=== PATIENT | female | born 1970 | race American Indian/Alaskan Native ===

== ENCOUNTER 2016-11-18 14:23 | Inpatient (IN) | payer OTHER ==
[2016-11-18 14:45] VITALS: BMI 23.4
--- NOTE | 2016-11-18 16:06 | C.PDOC ---
History Of Present Illness The patient, a 46y/o female, presents to the emergency department for evaluation of recurring epigastric pain which began yesterday. Patient states she has been experiencing similar symptoms "for many years" but with more frequent occurrences this month. Patient states her pain is located around her epigastric region and is waxing/waning. She states her pain has persisted but has improved from prior. She states her symptoms may questionably be associated with food. She denies fever, chills, nausea, vomiting. Patient was referred to the emergency department by her PMD for further evaluation. Patient has PSH of Total Hysterectomy. RECUR EPIG PAIN SINCE YEST. PS SIM SX "FOR MANY YEARS" BUT NOW MORE FREQ THIS MONTH. PAIN EPIGAST WAX WANE. PERSIST BUT IMPROVED FROM PRIOR. ?ASSOC W FOOD. NO FEVER, NV. REFERRED BY PMD FOR EVAL. PSH TOTAL HYST. EXAM NONTOXIC NAD ABD MILD EPIG TEND SOFT NO R/G REMAINDER NEG Time Seen by Provider: 11/18/16 15:42 Chief Complaint (Nursing): Abdominal Pain History Per: Patient History/Exam Limitations: no limitations Onset/Duration Of Symptoms: Waxing/Waning, Persistent Current Symptoms Are (Timing): Still Present Location Of Pain/Discomfort: Epigastric Quality Of Discomfort: "Pain" Associated Symptoms: denies: Fever, Chills, Nausea, Vomiting Exacerbating Factors: Food (questionably ) Additional History Per: Patient Past Medical History Reviewed: Historical Data, Nursing Documentation, Vital Signs Vital Signs: Last Vital Signs Temp 97.8 F 11/18/16 14:45 Pulse 93 H 11/18/16 14:45 Resp 18 11/18/16 14:45 BP 129/78 11/18/16 14:45 Pulse Ox 100 11/18/16 18:30 - Medical History PMH: No Chronic Diseases Family History: States: Unknown Family Hx - Social History Hx Alcohol Use: No Hx Substance Use: No - Immunization History Hx Tetanus Toxoid Vaccination: No Hx Influenza Vaccination: No Hx Pneumococcal Vaccination: No Review Of Systems Except As Marked, All Systems Reviewed And Found Negative. Constitutional: Negative for: Fever, Chills Gastrointestinal: Positive for: Abdominal Pain (epigastric ). Negative for: Nausea, Vomiting Physical Exam - Physical Exam Appears: Non-toxic, No Acute Distress Skin: Normal Color, Warm, Dry Head: Atraumatic, Normacephalic Eye(s): bilateral: Normal Inspection Oral Mucosa: Moist Neck: Supple Chest: Symmetrical, No Deformity, No Tenderness Cardiovascular: Rhythm Regular, No Murmur Respiratory: Normal Breath Sounds, No Rales, No Rhonchi, No Wheezing Gastrointestinal/Abdominal: Soft, Tenderness (mild, epigastric ), No Guarding, No Rebound Back: Normal Inspection, No Vertebral Tenderness, No Paraspinal Tenderness Extremity: Normal ROM, Capillary Refill (less than 2 seconds) Neurological/Psych: Oriented x3, Normal Speech Gait: Steady ED Course And Treatment - Laboratory Results Result Diagrams: 11/18/16 16:14 11/18/16 17:08 Rate From EC O2 Sat by Pulse Oximetry: 100 (on RA) Pulse Ox Interpretation: Normal - CT Scan/US US Abdomen Other Rad Studies (CT/US): Read By Radiologist CT/US Interpretation: Accession No. : [id number]. Patient Name / ID : WALESKA QUESADA / [id number]. Exam Date : 11/18/2016 16:36:54 ( Approved ). Study Comment : Sex / Age : F / 46Y. Creator : Sal Peña MD. Dictator : Sal Peña MD. Green Chain Offbearer : Breakdown Person : Sal Peña MD. Approver2 : Report Date : 11/18/2016 17:17:23. My Comment : . HISTORY: abd paiN EPIG RO ACUTE ROHIT. COMPARISON: None. TECHNIQUE: Sonographic evaluation of the right upper quadrant of the abdomen. FINDINGS: LIVER: Measures cm in length. Normal echogenicity of the liver parenchyma. No mass. No intrahepatic bile duct dilatation. GALLBLADDER: gallstones. COMMON BILE DUCT: Measures mm. No stones. No dilatation. PANCREAS: Unremarkable as visualized. No mass. No ductal dilatation. RIGHT KIDNEY: Measures cm in length. Normal echogenicity. No calculus, mass, or hydronephrosis. AORTA: No aneurysmal dilatation. IVC: Unremarkable. OTHER FINDINGS: None . IMPRESSION: Cholelithiasis. Progress Note: Labs, EKG, Abdominal US ordered and reviewed. ED OBSERVATION Date of observation admission: 11/18/16 Time of observation admission: 15:00 - Observation admission statement Patient is being placed in observation because:: ABD PAIN - Goals of Observation Goals of observation are:: NEG ACUTE ABD; SX IMPROVE - Progress Note Progress Note: 11/18/16 16:08 PT OFFERED PAIN MEDS BUT REFUSES @ THIS TIME. 11/18/16 18:12 APPEARS COMFORTABLE, EXAM UNCH FROM PRIOR D/W DR BRENNAN, STATES DOES NOT ADMIT AND TO ADMIT TO HOSPITALIST. REQUESTS DR PARRISH PRN 11/18/16 18:22 D/W DR ROJAS AWARE OF ER FINDINGS, STATES TO ADMIT UNDER DR KAY AND WILL NOTIFY HIM OF ADMISSION. 11/18/16 18:32 D/W SURG RESIDENT KALPANA WILL EVAL IN ER Disposition Counseled Patient/Family Regarding: Studies Performed, Diagnosis - Disposition Disposition: HOSPITALIZED Disposition Time: 17:47 Condition: STABLE - Clinical Impression Clinical Impression: Pancreatitis, acute, Cholelithiasis - Scribe Statement The provider has reviewed the documentation as recorded by the Scribe (Prisca Brwon) Provider Attestation: All medical record entries made by the Scribe were at my direction and personally dictated by me. I have reviewed the chart and agree that the record accurately reflects my personal performance of the history, physical exam, medical decision making, and the department course for this patient. I have also personally directed, reviewed, and agree with the discharge instructions and disposition. Decision To Admit - Pt Status Changed To: Hospital Disposition Of: Inpatient - Admit Certification Admit to Inpatient:: After my assessment, the patient will require hospitalization for at least two midnights. This is because of the severity of symptoms shown, intensity of services needed, and/or the medical risk in this patient being treated as an outpatient. - InPatient: Physician Admission Certification:: SEE NOTE - . Bed Request Type: Regular Admitting Physician: Wes Rojas Patient Diagnosis: Pancreatitis, acute, Cholelithiasis
[2016-11-18 16:34] LABS: BASO % 0.3 % (0.0-2.0); EOS % 0.1 % (0.0-4.0); LYMPH # 0.6 K/uL (1.0-4.3); MEAN CELL VOLUME 94.8 fL (81.0-99.0); MEAN CORPUSCULAR HEMOGLOBIN 30.9 pg (27.0-31.0); MEAN CORPUSCULAR HGB CONC 32.6 g/dL (33.0-37.0); MEAN PLATELET VOLUME 9.1 fL (7.2-11.7); MONO # 0.9 K/uL (0.0-0.8); MONO % 7.4 % (0.0-10.0); NRBC % 0.1 % (0.0-2.0); PLATELET COUNT 243 K/uL (130-400); RED CELL DISTRIBUTION WIDTH 13.2 % (11.5-14.5); WHITE BLOOD COUNT 12.2 K/uL (4.8-10.8)
[2016-11-18 16:36] LABS: RBC URINE 3 /hpf (0-3); URINE BILIRUBIN NEGATIVE (NEGATIVE); URINE BLOOD 1+ (NEGATIVE); URINE COLOR Yellow (YELLOW); URINE GLUCOSE (UA) NORMAL (Normal); URINE KETONE NEGATIVE (NEGATIVE); URINE LEUKOCYTE ESTERASE NEG Leu/uL (Negative); URINE PROTEIN NEGATIVE (NEGATIVE); URINE UROBILINOGEN NORMAL mg/dL (0.2-1.0)
--- NOTE | 2016-11-18 17:19 | US ---
HISTORY: abd paiN EPIG RO ACUTE ROHIT COMPARISON: None. TECHNIQUE: Sonographic evaluation of the right upper quadrant of the abdomen. FINDINGS: LIVER: Measures cm in length. Normal echogenicity of the liver parenchyma. No mass. No intrahepatic bile duct dilatation. GALLBLADDER: gallstones. COMMON BILE DUCT: Measures mm. No stones. No dilatation. PANCREAS: Unremarkable as visualized. No mass. No ductal dilatation. RIGHT KIDNEY: Measures cm in length. Normal echogenicity. No calculus, mass, or hydronephrosis. AORTA: No aneurysmal dilatation. IVC: Unremarkable. OTHER FINDINGS: None . IMPRESSION: Cholelithiasis.
[2016-11-18 17:22] LABS: CHLORIDE 99 mmol/L (98-107); SODIUM 141 mmol/L (132-148)
[2016-11-18 17:23] LABS: POTASSIUM 3.3 mmol/L (3.6-5.2)
[2016-11-18 17:24] LABS: GFR AFRICAN-AMERICAN > 60
[2016-11-18 17:25] LABS: ALB/GLOB RATIO 1.2 (1.0-2.1); ALKALINE PHOSPHATASE 150 U/L (38-126); BILIRUBIN,TOTAL 3.1 mg/dL (0.2-1.3); BLOOD UREA NITROGEN 10 mg/dL (7-17); CALCIUM 9.9 mg/dl (8.6-10.4); CARBON DIOXIDE 24 mmol/L (22-30); GLUCOSE,RANDOM 109 mg/dL (65-105); TOTAL PROTEIN 8.1 g/dL (6.3-8.3)
[2016-11-18 17:43] LABS: ALT/SGPT 1228 U/L (9-52); AST/SGOT 1291 U/L (14-36)
[2016-11-18 18:44] LABS: NEUTROPHIL 84 % (50-75); SMUDGE CELLS PRESENT; TOTAL CELLS COUNTED 100
[2016-11-18 18:45] LABS: LARGE PLATELETS PRESENT
--- NOTE | 2016-11-18 19:28 | CP.PCM.CON ---
<Mary Vasquez - Last Filed: 11/18/16 19:19> History of Present Illness - History of Present Illness History of Present Illness: GENERAL SURGERY CONSULT NOTE FOR DR. HATFIELD 46yo F with PMHx of fibroids s/p hysterectomy and cholelithiasis presents to the ED with epigastric pain and vomiting. She states that last night around 1Am , she began having epigastric pain that radiated to her back. She vomited small amounts about 8 times. She went to her PMD who told her to come to the ED. Patient states that she has had similar recurrent symptoms over the years that sometimes occur after eating. Usually she takes Tums or sometimes vomits and then the pain resolves after a couple of minutes. She said if the symptoms occur after eating spicy food then they take longer to resolve. Her PMD had sent her for an abdominal ultrasound in December 2015 which showed cholelithiasis but no signs of cholecystitis. She has never seen a surgeon for her gallstones. She states that the symptoms are similar to this episode, however the pain didn' t resolve on its own which prompted her to come to the ED. Currently, she states that the pain is gone. She refused pain medication in the ED. She denies nausea, denies diarrhea. Last BM was this morning. PMHx: fibroids, cholelithiasis Surgeries: open hysterectomy, tubal ligation Allergies: none Social history: denies etoh, tobacco or illicit drug use Review of Systems - Review of Systems All systems: reviewed and no additional remarkable complaints except (as per HPI ) Past Patient History - Past Social History Smoking Status: Never Smoked - PSYCHIATRIC Hx Substance Use: No - SURGICAL HISTORY Hx Surgeries: Yes Hx Hysterectomy: Yes Meds Allergies/Adverse Reactions: Allergies Allergy/AdvReac Type Severity Reaction Status Date / Time No Known Allergies Allergy Verified 11/18/16 14:44 Physical Exam - Constitutional Appears: Well, Non-toxic, No Acute Distress - Head Exam Head Exam: ATRAUMATIC, NORMAL INSPECTION - Eye Exam Eye Exam: EOMI - Respiratory Exam Respiratory Exam: NORMAL BREATHING PATTERN. absent: Respiratory Distress - Cardiovascular Exam Cardiovascular Exam: +S1, +S2 - GI/Abdominal Exam GI & Abdominal Exam: Soft, Tenderness (mild epigastric tenderness). absent: Distended, Firm, Guarding, Rebound, Rigid Additional comments: Negative [place] sign - Rectal Exam Rectal Exam: Deferred - Extremities Exam Extremities exam: Positive for: normal capillary refill - Neurological Exam Neurological exam: Alert, Oriented x3 - Psychiatric Exam Psychiatric exam: Normal Affect, Normal Mood - Skin Skin Exam: Dry, Intact, Normal Color, Warm Results - Vital Signs Recent Vital Signs: Last Vital Signs Temp 97.8 F 11/18/16 14:45 Pulse 93 H 11/18/16 14:45 Resp 18 11/18/16 14:45 BP 129/78 11/18/16 14:45 Pulse Ox 100 11/18/16 18:32 - Labs Result Diagrams: 11/18/16 16:14 11/18/16 17:08 Assessment & Plan - Assessment and Plan (Free Text) Assessment: 46yo F with PMHx of fibroids s/p hysterectomy and cholelithiasis presented with epigastric pain and vomiting and was found to have gallstone pancreatitis and hyperbilirubinemia - Afebrile, VSS - WBC 12.2 - Hypokalemia - Elevated bilirubin 3.1 (no prior comparison) - Markedly elevated LFTs - Markedly elevated lipase 11,445 - US: cholelithiasis, dilated CBD - NPO - IV fluids - MRCP ordered due to dilated CBD and elevated bilirubin - If MRCP negative, will do cholecystectomy once pancreatitis cools off - Discussed plan with Dr. Alysia Vasquez PGY-2 <Anatoliy Hatfield - Last Filed: 11/20/16 18:03> Meds - Medications Medications: Current Medications Sodium Chloride (Sodium Chloride 0.9%) 1,000 mls @ 200 mls/hr IV .Q5H [facility] Last Admin: 11/20/16 11:45 Dose: Not Given Morphine Sulfate (Morphine) 2 mg IVP Q4 PRN PRN Reason: Pain, moderate (4-7) Ondansetron HCl (Zofran Inj) 4 mg IVP Q4 PRN PRN Reason: Nausea/Vomiting Pantoprazole Sodium (Protonix Inj) 40 mg IVP DAILY [facility] Last Admin: 11/20/16 11:45 Dose: 40 mg Results - Vital Signs Recent Vital Signs: Last Vital Signs Temp 97.6 F 11/20/16 15:35 Pulse 89 11/20/16 16:57 Resp 20 11/20/16 15:35 BP 147/92 H 11/20/16 15:35 Pulse Ox 100 11/20/16 15:35 - Labs Result Diagrams: 11/20/16 07:48 11/20/16 07:48 Labs: Laboratory Results - last 24 hr 11/20/16 07:48 WBC 4.7 L RBC 3.97 Hgb 12.4 Hct 37.8 MCV 95.4 MCH 31.3 H MCHC 32.8 L RDW 13.8 Plt Count 216 MPV 8.9 Neut % (Auto) 70.1 Lymph % (Auto) 19.9 L [place] % (Auto) 7.5 Eos % (Auto) 1.8 Baso % (Auto) 0.7 Neut # 3.3 Lymph # 0.9 L [place] # 0.4 Eos # 0.1 Baso # 0.0 PT 12.6 H INR 1.1 APTT 37 H Sodium 139 Potassium 3.6 Chloride 108 H Carbon Dioxide 16 L Anion Gap 19 BUN 10 Creatinine 0.6 L Est GFR ( Amer) > 60 Est GFR (Non-Af Amer) > 60 Random Glucose 54 L Calcium 8.5 L Phosphorus 2.9 Magnesium 1.9 Total Bilirubin 1.4 H AST 142 H D ALT 446 H D Alkaline Phosphatase 133 H Lactate Dehydrogenase 334 Total Protein 6.6 Albumin 3.5 Globulin 3.1 Albumin/Globulin Ratio 1.1 Lipase 976 H Attending/Attestation - Attestation I have personally seen and examined this patient.: Yes I have fully participated in the care of the patient.: Yes I have reviewed all pertinent clinical information: Yes Notes (Text): 11/20/16 18:02 Pt was seen and examined at bedside on 11/18/16 Agree with above note and assessment. Pt with Cholelithiasis with GS pancreatitis C.w current mx MRCP We will f.u in am Plan d.w pt and Parents in detail Risk and benefit explained in detail.
[2016-11-18] MEDS: Sodium Chloride 0.9% 1,000 ML IV SCH (20:00)
--- NOTE | 2016-11-18 20:56 | CP.PCM.HP ---
<Kathi Bautista - Last Filed: 11/18/16 20:35> History of Present Illness - History of Present Illness History of Present Illness: CC: "abdominal pain and vomiting" HPI: Pt is a 46F with medical history of cholelithiasis and uterine fibroids who presents to the emergency room with complaint of abdominal pain and emesis. Patient states the abdominal pain started suddenly at 1 am and was located to her epigastric region and occasionally would radiate to her right upper back and shoulder. She also notes abdominal pain to be intermittent and sometimes associated with brief episodes of shortness of breath when severe. She reports vomiting of food contents which started later in the morning and admits to 4 episodes of emesis prior to coming to the hospital. Patient states she has experienced similar symptoms in the past as far back as 1997 and has been previously diagnosed with cholelithiasis by her primary care physician via ultrasonography. Her last episode of similar symptoms was one week ago. Patient states pain is alleviated by taking tums, drinking tea or emesis. The pain is exacerbated by eating spicy foods. She describes occasional colicky pain to her right upper abdominal quadrant associated with eating. She denies being previously evaluated by surgery for cholelithiasis. Patient denies a history of alcohol abuse. She denies all other symptoms including headache, dizziness, lightheadedness, visual changes, fever, chills, chest pain, paroxysmal nocturnal dyspnea, lower extremity edema, hematemesis, coffee ground emesis, pruritus, skin changes, diarrhea, hematochezia, and urinary symptoms. Currently , patient is resting comfortably and states abdominal pain has resolved. PMD: Dr. Bernardo Gunderson sp? PMH: see HPI Medications: Tums for abdominal pain Allergies: NKDA Family History: not pertinent Surgical History: total hysterectomy and tubal ligation Social: Never smoker. Denies alcohol and illicit drug use. Present on Admission - Present on Admission Any Indicators Present on Admission: No History of DVT/PE: No History of Uncontrolled Diabetes: No Urinary Catheter: No Decubitus Ulcer Present: No Review of Systems - Constitutional Constitutional: absent: Chills, Fever, Headache, Lethargy, Malaise, Weakness - EENT Eyes: absent: Change in Vision Ears: absent: Dizziness Nose/Mouth/Throat: absent: Nasal Congestion, Nasal Discharge - Cardiovascular Cardiovascular: Dyspnea. absent: Chest Pain, Chest Pain at Rest, Chest Pain with Activity, Edema, Leg Edema, Palpitations, Paroxysmal Nocturnal Dyspnea, Rapid Heart Rate, Syncope - Respiratory Respiratory: Dyspnea. absent: Hemoptysis, Dyspnea on Exertion, Wheezing, Chest Congestion - Gastrointestinal Gastrointestinal: Abdominal Pain, Nausea, Vomiting. absent: Bloating, Coffee Ground Emesis, Constipation, Diarrhea, Hematemesis, Hematochezia Additional comments: mild epigastric pain on palpation - Genitourinary Genitourinary: absent: Change in Urinary Stream, Difficulty Urinating, Dysuria - Musculoskeletal Musculoskeletal: Back Pain. absent: Numbness, Tingling - Integumentary Integumentary: absent: Changing Lesions, New Lesions, Rash - Neurological Neurological: absent: Confusion, Dizziness, Numbness, Syncope, Vertigo, Weakness - Psychiatric Psychiatric: absent: Anxiety, Depression - Endocrine Endocrine: absent: Cold Intolorance, Fatigue, Polyuria Past Patient History - Past Social History Smoking Status: Never Smoked - PSYCHIATRIC Hx Substance Use: No - SURGICAL HISTORY Hx Surgeries: Yes Hx Hysterectomy: Yes Meds Allergies/Adverse Reactions: Allergies Allergy/AdvReac Type Severity Reaction Status Date / Time No Known Allergies Allergy Verified 11/18/16 14:44 Physical Exam - Constitutional Appears: Non-toxic, No Acute Distress - Head Exam Head Exam: ATRAUMATIC, NORMAL INSPECTION, NORMOCEPHALIC - Eye Exam Eye Exam: EOMI, Normal appearance, PERRL Pupil Exam: PERRL - ENT Exam ENT Exam: Mucous Membranes Moist, Normal Exam. absent: Mucous Membranes Dry - Neck Exam Neck exam: Positive for: Full Rom, Normal Inspection - Respiratory Exam Respiratory Exam: Clear to Auscultation Bilateral, NORMAL BREATHING PATTERN. absent: Chest Wall Tenderness, Decreased Breath Sounds, Rales, Rhonchi, Wheezes - Cardiovascular Exam Cardiovascular Exam: +S1, +S2. absent: Tachycardia, Diastolic murmur, Gallop, Rubs, Systolic Murmur - GI/Abdominal Exam GI & Abdominal Exam: Normal Bowel Sounds, Soft, Tenderness. absent: Distended, Firm, Guarding, Hernia Additional comments: mild epigastric tenderness to palpation - Extremities Exam Extremities exam: Positive for: normal inspection, pedal pulses present. Negative for: pedal edema, tenderness - Back Exam Back exam: NORMAL INSPECTION. absent: paraspinal tenderness, rash noted, tenderness - Neurological Exam Neurological exam: Alert, CN II-XII Intact, Oriented x3 - Psychiatric Exam Psychiatric exam: Normal Affect, Normal Mood - Skin Skin Exam: Intact, Normal Color Results - Vital Signs Recent Vital Signs: Last Vital Signs Temp 98.3 F 11/18/16 19:44 Pulse 81 11/18/16 19:44 Resp 20 11/18/16 19:44 BP 130/83 11/18/16 19:44 Pulse Ox 98 11/18/16 19:44 - Labs Result Diagrams: 11/18/16 16:14 11/18/16 17:08 Assessment & Plan - Assessment and Plan (Free Text) Assessment: 1. Pancreatitis possibly secondary to cholelithiasis AST/ALT: 1291/1228 (no previous labs to compare) Alk Phos 150 Bilirubin 3.1 Lipase 32942 NPO Normal Saline IV @200cc Zofran 4 mg IVP q4h PRN for nausea Morphine 2 mg IVP q4h PRN for pain f/u CMP, CBC, amylase, lipase f/u hemoglobin alc, lipid panel, TSH 2. Cholelithiasis Abdominal US: Common bile duct 0.68 cm, cholelithiasis, elevated bilirubin General surgery, Dr. Hatfield, consulted. Help appreciated. f/u MRCP ordered by surgery Per surgery, will consider cholecystectomy pending MRCP results and after pancreatitis resolves 3. Leukocytosis likely secondary to pancreatitis WBC 12.2 Afebrile Monitor 4. Hypokalemia Potassium Chloride 20 meq IV x3 given f/u repeat potassium, magnesium Monitor 5. Prophylaxis SCD Protonix 40 mg IVP daily - Date & Time Date: 11/18/16 Time: 21:10 <Rodrigue Sainz P - Last Filed: 11/22/16 20:12> Results - Vital Signs Recent Vital Signs: Last Vital Signs Temp 98 F 11/22/16 16:00 Pulse 64 11/22/16 16:00 Resp 20 11/22/16 16:00 BP 146/80 11/22/16 16:00 Pulse Ox 95 11/22/16 16:00 - Labs Result Diagrams: 11/22/16 07:47 11/22/16 07:47 Labs: Laboratory Results - last 24 hr 11/22/16 07:47 WBC 3.3 L RBC 3.88 Hgb 11.9 Hct 36.4 MCV 93.8 MCH 30.7 MCHC 32.7 L RDW 13.5 Plt Count 209 MPV 8.8 Neut % (Auto) 57.3 Lymph % (Auto) 30.0 [place] % (Auto) 8.2 Eos % (Auto) 3.0 Baso % (Auto) 1.5 Neut # 1.9 Lymph # 1.0 [place] # 0.3 Eos # 0.1 Baso # 0.0 PT 12.1 INR 1.1 APTT 31 Sodium 141 Potassium 3.4 L Chloride 104 Carbon Dioxide 24 Anion Gap 16 BUN 2 L Creatinine 0.7 Est GFR ( Amer) > 60 Est GFR (Non-Af Amer) > 60 Random Glucose 90 Calcium 8.3 L Phosphorus 2.6 Magnesium 1.7 Total Bilirubin 0.9 AST 43 H D ALT 235 H D Alkaline Phosphatase 102 Total Protein 6.1 L Albumin 3.2 L Globulin 2.8 Albumin/Globulin Ratio 1.1 Attending/Attestation - Attestation I have personally seen and examined this patient.: Yes I have fully participated in the care of the patient.: Yes I have reviewed all pertinent clinical information: Yes
[2016-11-18] MEDS ORDERED: Potassium Chloride 20 mEq 100 ML IVPB ONE ×3 (21:07→21:08)
[2016-11-19] MEDS: Sodium Chloride 0.9% 1,000 ML IV SCH ×4 (01:15→20:45)
[2016-11-19] MEDS ORDERED: Potassium Chloride 20 mEq 100 ML IVPB ONE ×2 (02:00)
[2016-11-19 08:09] LABS: BASO % 0.6 % (0.0-2.0); EOS # 0.1 K/uL (0.0-0.7); EOS % 2.2 % (0.0-4.0); HEMATOCRIT 37.9 % (34.0-47.0); LYMPH # 0.9 K/uL (1.0-4.3); LYMPH % 13.3 % (20.0-40.0); MEAN CELL VOLUME 94.6 fL (81.0-99.0); MEAN CORPUSCULAR HEMOGLOBIN 31.3 pg (27.0-31.0); MEAN CORPUSCULAR HGB CONC 33.1 g/dL (33.0-37.0); MONO # 0.4 K/uL (0.0-0.8); MONO % 6.6 % (0.0-10.0); RED CELL DISTRIBUTION WIDTH 13.6 % (11.5-14.5); WHITE BLOOD COUNT 6.7 K/uL (4.8-10.8)
[2016-11-19 08:24] LABS: CHLORIDE 106 mmol/L (98-107); POTASSIUM 4.2 mmol/L (3.6-5.2); SODIUM 142 mmol/L (132-148)
[2016-11-19 08:26] LABS: AMYLASE 734 U/L (30-110)
[2016-11-19 08:27] LABS: GFR AFRICAN-AMERICAN > 60
[2016-11-19 08:28] LABS: ALB/GLOB RATIO 1.2 (1.0-2.1); ALKALINE PHOSPHATASE 149 U/L (38-126); ALT/SGPT 655 U/L (9-52); AST/SGOT 499 U/L (14-36); BILIRUBIN,TOTAL 5.3 mg/dL (0.2-1.3); BLOOD UREA NITROGEN 11 mg/dL (7-17); CALCIUM 8.6 mg/dl (8.6-10.4); CARBON DIOXIDE 21 mmol/L (22-30); CHOLESTEROL 137 mg/dL (0-199); GLUCOSE,RANDOM 72 mg/dL (65-105); MAGNESIUM 1.9 mg/dL (1.6-2.3); PHOSPHOROUS 3.1 mg/dL (2.5-4.5); TOTAL PROTEIN 6.7 g/dL (6.3-8.3)
--- NOTE | 2016-11-19 08:41 | CP.PCM.PN ---
<Arun Barger - Last Filed: 11/19/16 18:20> Subjective - Date & Time of Evaluation Date of Evaluation: 11/19/16 Time of Evaluation: 08:37 - Subjective Subjective: PGY-1 note for General Surgery, Dr. Hatfield Pt S&E. She admits RUQ pain has resolved from yesterday, and has refused all pain medication to this point. She denies f/c/n/v/d/c. Pt is NPO for MRCP today. Objective - Vital Signs/Intake and Output Vital Signs (last 24 hours): Temp Pulse Resp BP Pulse Ox 97.9 F 89 20 126/72 100 11/19/16 08:00 11/19/16 08:00 11/19/16 08:00 11/19/16 08:00 11/19/16 08:00 Intake and Output: 11/19/16 11/19/16 06:59 18:59 Intake Total 1400 Balance 1400 - Medications Medications: Current Medications Sodium Chloride (Sodium Chloride 0.9%) 1,000 mls @ 200 mls/hr IV .Q5H [facility] Last Admin: 11/19/16 06:40 Dose: 200 mls/hr Morphine Sulfate (Morphine) 2 mg IVP Q4 PRN PRN Reason: Pain, moderate (4-7) Ondansetron HCl (Zofran Inj) 4 mg IVP Q4 PRN PRN Reason: Nausea/Vomiting Pantoprazole Sodium (Protonix Inj) 40 mg IVP DAILY [facility] - Labs Labs: 11/19/16 08:03 11/19/16 08:03 - Constitutional Appears: Non-toxic, No Acute Distress - Head Exam Head Exam: ATRAUMATIC, NORMAL INSPECTION, NORMOCEPHALIC - Eye Exam Eye Exam: EOMI, Normal appearance Pupil Exam: PERRL - ENT Exam ENT Exam: Mucous Membranes Moist - Respiratory Exam Respiratory Exam: Clear to Ausculation Bilateral, NORMAL BREATHING PATTERN - GI/Abdominal Exam GI & Abdominal Exam: Soft, Normal Bowel Sounds. absent: Tenderness - Extremities Exam Extremities Exam: Normal Inspection - Neurological Exam Neurological Exam: Alert, Awake Assessment and Plan - Assessment and Plan (Free Text) Assessment: - Afebrile, VSS - WBC 6.7 from 12.2 yesterday - Hypokalemia resolved - Elevated bilirubin: 5.3 from 3.1 yesterday - Downtrending but elevated LFTs (499/655 from 1291/1228 yesterday) - Markedly elevated lipase 11,445 - US: cholelithiasis, dilated CBD - NPO - IV fluids - f/u MRCP results - If MRCP negative, will do cholecystectomy once pancreatitis cools off Surgical team discussed plan with Dr. Alysia Barger, PGY-1 <Anatoliy Hatfield - Last Filed: 11/20/16 18:09> Objective - Vital Signs/Intake and Output Vital Signs (last 24 hours): Temp Pulse Resp BP Pulse Ox 97.6 F 89 20 147/92 H 100 11/20/16 15:35 11/20/16 16:57 11/20/16 15:35 11/20/16 15:35 11/20/16 15:35 Intake and Output: 11/20/16 11/20/16 06:59 18:59 Intake Total 1600 400 Balance 1600 400 - Medications Medications: Current Medications Sodium Chloride (Sodium Chloride 0.9%) 1,000 mls @ 200 mls/hr IV .Q5H [facility] Last Admin: 11/20/16 11:45 Dose: Not Given Morphine Sulfate (Morphine) 2 mg IVP Q4 PRN PRN Reason: Pain, moderate (4-7) Ondansetron HCl (Zofran Inj) 4 mg IVP Q4 PRN PRN Reason: Nausea/Vomiting Pantoprazole Sodium (Protonix Inj) 40 mg IVP DAILY [facility] Last Admin: 11/20/16 11:45 Dose: 40 mg - Labs Labs: 11/20/16 07:48 11/20/16 07:48 PT 12.6 SECONDS (9.7-12.2) H 11/20/16 07:48 INR 1.1 11/20/16 07:48 APTT 37 SECONDS (21-34) H 11/20/16 07:48 Attending/Attestation - Attestation I have personally seen and examined this patient.: Yes I have fully participated in the care of the patient.: Yes I have reviewed all pertinent clinical information, including history, physical exam and plan: Yes Notes (Text): 11/20/16 18:09 Pt was seen and examined at bedside on 03/21/17 Agree with above note and assessment. MRCP is positive GI consult for ERCP C/w current mx Plan d.w pt and Parents in detail Risk and benefit explained in detail.
[2016-11-19 08:53] LABS: THYROID STIMULATING HORMONE 1.01 mIU/L (0.46-4.68)
--- NOTE | 2016-11-19 12:35 | CP.PCM.PN ---
<Julia Castle - Last Filed: 11/19/16 12:36> Subjective - Date & Time of Evaluation Date of Evaluation: 11/19/16 Time of Evaluation: 07:25 - Subjective Subjective: PGY [address] Gross: Patient seen and evaluated at bedside this morning. Patient states that her abdominal pain has resolved. She is NPO for MRCP today. She denies N/V, fever, chills. She has no other complaints. She states that she has not taken any news medications recently and does not drink alcohol. She does have a long history of gallstones also with a few episodes of pancreatitis. Objective - Vital Signs/Intake and Output Vital Signs (last 24 hours): Temp Pulse Resp BP Pulse Ox 97.9 F 89 20 126/72 100 11/19/16 08:00 11/19/16 08:00 11/19/16 08:00 11/19/16 08:00 11/19/16 08:00 Intake and Output: 11/19/16 11/19/16 06:59 18:59 Intake Total 1400 Balance 1400 - Medications Medications: Current Medications Sodium Chloride (Sodium Chloride 0.9%) 1,000 mls @ 200 mls/hr IV .Q5H [facility] Last Admin: 11/19/16 06:40 Dose: 200 mls/hr Morphine Sulfate (Morphine) 2 mg IVP Q4 PRN PRN Reason: Pain, moderate (4-7) Ondansetron HCl (Zofran Inj) 4 mg IVP Q4 PRN PRN Reason: Nausea/Vomiting Pantoprazole Sodium (Protonix Inj) 40 mg IVP DAILY [facility] Last Admin: 11/19/16 10:42 Dose: 40 mg - Labs Labs: 11/19/16 08:03 11/19/16 08:03 - Constitutional Appears: Non-toxic, No Acute Distress - Head Exam Head Exam: ATRAUMATIC, NORMAL INSPECTION - Eye Exam Eye Exam: EOMI, Normal appearance, PERRL Pupil Exam: NORMAL ACCOMODATION - ENT Exam ENT Exam: Mucous Membranes Moist - Respiratory Exam Respiratory Exam: Clear to Ausculation Bilateral, NORMAL BREATHING PATTERN. absent: Accessory Muscle Use, Chest Wall Tenderness - Cardiovascular Exam Cardiovascular Exam: REGULAR RHYTHM, +S1, +S2 - GI/Abdominal Exam GI & Abdominal Exam: Soft, Normal Bowel Sounds. absent: Distended, Firm, Guarding, Tenderness - Extremities Exam Extremities Exam: Normal Inspection. absent: Calf Tenderness, Pedal Edema - Back Exam Back Exam: NORMAL INSPECTION. absent: CVA tenderness (L), CVA tenderness (R), paraspinal tenderness - Neurological Exam Neurological Exam: Alert, Awake, CN II-XII Intact, Oriented x3 Neuro motor strength exam: Left Upper Extremity: 5, Right Upper Extremity: 5, Left Lower Extremity: 5, Right Lower Extremity: 5 - Psychiatric Exam Psychiatric exam: Normal Affect, Normal Mood - Skin Skin Exam: Dry, Intact, Normal Color, Warm Assessment and Plan - Assessment and Plan (Free Text) Assessment: 1. Pancreatitis possibly secondary to cholelithiasis AST/ALT: 655/149 - improving 1291/1228 (no previous labs to compare) Alk Phos 150 Bilirubin 5.3 up from 3.1 on admission Lipase 2786 down from 48119 on admission NPO Normal Saline IV @200cc Zofran 4 mg IVP q4h PRN for nausea Morphine 2 mg IVP q4h PRN for pain Hepatitis negative TSH wnl HbA1c = 6 Tchol 137, Trig 42, LDL 45, HDL 65 f/u AM labs 2. Cholelithiasis Abdominal US: Common bile duct 0.68 cm, cholelithiasis, elevated bilirubin General surgery, Dr. Hatfield, consulted. Help appreciated. f/u MRCP ordered by surgery Per surgery, will consider cholecystectomy pending MRCP results and after pancreatitis resolves 3. Leukocytosis Resolved WBC 6.7 (WBC 12.2 on admission) likely secondary to pancreatitis Afebrile Monitor 4. Hypokalemia Resolved 5. Prophylaxis SCD Protonix 40 mg IVP daily NPO <Wes Gross H - Last Filed: 11/19/16 14:11> Objective - Vital Signs/Intake and Output Vital Signs (last 24 hours): Temp Pulse Resp BP Pulse Ox 97.9 F 89 20 126/72 100 11/19/16 08:00 11/19/16 08:00 11/19/16 08:00 11/19/16 08:00 11/19/16 08:00 Intake and Output: 11/19/16 11/19/16 06:59 18:59 Intake Total 1400 Balance 1400 - Medications Medications: Current Medications Sodium Chloride (Sodium Chloride 0.9%) 1,000 mls @ 200 mls/hr IV .Q5H [facility] Last Admin: 11/19/16 06:40 Dose: 200 mls/hr Morphine Sulfate (Morphine) 2 mg IVP Q4 PRN PRN Reason: Pain, moderate (4-7) Ondansetron HCl (Zofran Inj) 4 mg IVP Q4 PRN PRN Reason: Nausea/Vomiting Pantoprazole Sodium (Protonix Inj) 40 mg IVP DAILY [facility] Last Admin: 11/19/16 10:42 Dose: 40 mg - Labs Labs: 11/19/16 08:03 11/19/16 08:03 Attending/Attestation - Attestation I have personally seen and examined this patient.: Yes I have fully participated in the care of the patient.: Yes I have reviewed all pertinent clinical information, including history, physical exam and plan: Yes Notes (Text): 11/19/16 14:05 Medical Attending: Patient was seen and examined by me. Agree with the above note by the resident The patient's LFTs are decreasing, and the lipase is decreasing as well - she probably passed the gall stone already Patient will be having MRCP for further evaluation of the billiary tree. The U/S shows gallstones. At this time continue with IVF, NPO thank you Wes Gross
--- NOTE | 2016-11-19 15:54 | CP.PCM.CON ---
<Franchesca Osborn - Last Filed: 11/19/16 15:50> History of Present Illness - History of Present Illness History of Present Illness: Gastroenterology Fellow/PGY4 Consult Note 46 year old female with history of Cholelithiasis and fibroids status post total hysterectomy presenting with abdominal pain. She describes sudden onset of constant epigastric pain with radiation to back and right shoulder. She was evaluated by PCP and decided to present to ER for further evaluation given unchanged severe pain -06/10. Associated nausea and intractable bilious vomitus. Denies hematemesis, diarrhea,pruritis, jaundice, scleral icterus, dysphagia, odynophagia, fever, chills, sweats, melena, hematochezia, weight loss , dysphagia, odynophagia. Denies tobacco or alcohol use. No prior EGD or colonoscopy. Family-denies liver cancer, pancreatic cancer Social-denies tobacco,alcohol, illicit drug use Surgery- total hysterectomy and bilateral tubal ligation Review of Systems - Review of Systems Review of Systems: A 12-point review of systems negative except for as above Past Patient History - Past Social History Smoking Status: Never Smoked - MUSCULOSKELETAL/RHEUMATOLOGICAL Hx Falls: No - PSYCHIATRIC Hx Substance Use: No - SURGICAL HISTORY Hx Surgeries: Yes Hx Hysterectomy: Yes - ANESTHESIA Hx Anesthesia: Yes Hx Anesthesia Reactions: No Hx Malignant Hyperthermia: No Has any member of the family had a problem w/ anesthesia?: No Meds Allergies/Adverse Reactions: Allergies Allergy/AdvReac Type Severity Reaction Status Date / Time No Known Allergies Allergy Verified 11/18/16 14:44 - Medications Medications: Current Medications Sodium Chloride (Sodium Chloride 0.9%) 1,000 mls @ 200 mls/hr IV .Q5H [facility] Last Admin: 11/19/16 06:40 Dose: 200 mls/hr Morphine Sulfate (Morphine) 2 mg IVP Q4 PRN PRN Reason: Pain, moderate (4-7) Ondansetron HCl (Zofran Inj) 4 mg IVP Q4 PRN PRN Reason: Nausea/Vomiting Pantoprazole Sodium (Protonix Inj) 40 mg IVP DAILY [facility] Last Admin: 11/19/16 10:42 Dose: 40 mg Physical Exam - Constitutional Appears: Non-toxic, No Acute Distress - Head Exam Head Exam: ATRAUMATIC, NORMOCEPHALIC - Eye Exam Eye Exam: EOMI, PERRL. absent: Scleral icterus Pupil Exam: PERRL. absent: Miosis, Mydriatic - ENT Exam ENT Exam: Mucous Membranes Moist, Normal Oropharynx - Neck Exam Neck exam: Positive for: Full Rom, Normal Inspection - Respiratory Exam Respiratory Exam: Clear to Auscultation Bilateral. absent: Rales, Rhonchi, Wheezes - Cardiovascular Exam Cardiovascular Exam: RRR, +S1, +S2. absent: Gallop, Rubs - GI/Abdominal Exam GI & Abdominal Exam: Normal Bowel Sounds, Soft. absent: Distended, Firm, Guarding, Organomegaly, Rebound, Rigid, Tenderness - Extremities Exam Extremities exam: Positive for: full ROM. Negative for: pedal edema - Neurological Exam Neurological exam: Alert - Psychiatric Exam Psychiatric exam: Normal Affect, Normal Mood - Skin Skin Exam: Dry, Intact, Normal Color, Warm Results - Vital Signs Recent Vital Signs: Last Vital Signs Temp 97.9 F 11/19/16 08:00 Pulse 89 11/19/16 08:00 Resp 20 11/19/16 08:00 BP 126/72 11/19/16 08:00 Pulse Ox 100 11/19/16 08:00 - Labs Result Diagrams: 11/19/16 08:03 11/19/16 08:03 Labs: Laboratory Results - last 24 hr 11/19/16 11/19/16 08:03 09:56 WBC 6.7 RBC 4.01 Hgb 12.6 Hct 37.9 MCV 94.6 MCH 31.3 H MCHC 33.1 RDW 13.6 Plt Count 214 MPV 9.0 Neut % (Auto) 77.3 H Lymph % (Auto) 13.3 L Tama % (Auto) 6.6 Eos % (Auto) 2.2 Baso % (Auto) 0.6 Neut # 5.2 Lymph # 0.9 L Tama # 0.4 Eos # 0.1 Baso # 0.0 Sodium 142 Potassium 4.2 Chloride 106 Carbon Dioxide 21 L Anion Gap 19 BUN 11 Creatinine 0.8 Est GFR ( Amer) > 60 Est GFR (Non-Af Amer) > 60 Random Glucose 72 Hemoglobin A1c 6.1 Calcium 8.6 Phosphorus 3.1 Magnesium 1.9 Total Bilirubin 5.3 H AST 499 H D ALT 655 H D Alkaline Phosphatase 149 H Total Protein 6.7 Albumin 3.6 Globulin 3.1 Albumin/Globulin Ratio 1.2 Triglycerides 42 Cholesterol 137 LDL Cholesterol Direct 45 HDL Cholesterol 65 Amylase 734 H Lipase 2786 H TSH 3rd Generation 1.01 Hepatitis A IgM Ab Negative Hep Bs Antigen Negative Hep B Core IgM Ab Negative Hepatitis C Antibody Negative Assessment & Plan - Assessment and Plan (Free Text) Assessment: 46 year old female with history of Cholelithiasis and fibroids status post total hysterectomy presenting with epigastric pain. Ultrasound showing cholelithiasis without biliary dilatation. Laboratory findings with transaminitis, elevated lipase, and improved leukocytosis. No prior EGD or colonoscopy. Plan: >workup revealing gallstone pancreatitis >awaiting MRCP to evaluate for choledocholithiasis >discussed with Radiologist- questionable distal microlithiasis of CBD >will provide final read with additional radiologist review >continue supportive care >aggressive IVFs in setting of pancreatitis >pain resolved >discussed with surgery-NPO, tentative cholecystectomy >LFTs trending down, TB increased >trend LFTs, may have passed gallstone >will provide recommendation for ERCP indication with radiologist read, LFTs trend, and clinical assessment <Greyson Abrams - Last Filed: 11/19/16 16:12> Meds - Medications Medications: Current Medications Sodium Chloride (Sodium Chloride 0.9%) 1,000 mls @ 200 mls/hr IV .Q5H [facility] Last Admin: 11/19/16 06:40 Dose: 200 mls/hr Morphine Sulfate (Morphine) 2 mg IVP Q4 PRN PRN Reason: Pain, moderate (4-7) Ondansetron HCl (Zofran Inj) 4 mg IVP Q4 PRN PRN Reason: Nausea/Vomiting Pantoprazole Sodium (Protonix Inj) 40 mg IVP DAILY [facility] Last Admin: 11/19/16 10:42 Dose: 40 mg Results - Vital Signs Recent Vital Signs: Last Vital Signs Temp 97.9 F 11/19/16 08:00 Pulse 89 11/19/16 08:00 Resp 20 11/19/16 08:00 BP 126/72 11/19/16 08:00 Pulse Ox 100 11/19/16 08:00 - Labs Result Diagrams: 11/19/16 08:03 11/19/16 08:03 Labs: Laboratory Results - last 24 hr 11/19/16 11/19/16 08:03 09:56 WBC 6.7 RBC 4.01 Hgb 12.6 Hct 37.9 MCV 94.6 MCH 31.3 H MCHC 33.1 RDW 13.6 Plt Count 214 MPV 9.0 Neut % (Auto) 77.3 H Lymph % (Auto) 13.3 L Tama % (Auto) 6.6 Eos % (Auto) 2.2 Baso % (Auto) 0.6 Neut # 5.2 Lymph # 0.9 L Tama # 0.4 Eos # 0.1 Baso # 0.0 Sodium 142 Potassium 4.2 Chloride 106 Carbon Dioxide 21 L Anion Gap 19 BUN 11 Creatinine 0.8 Est GFR ( Amer) > 60 Est GFR (Non-Af Amer) > 60 Random Glucose 72 Hemoglobin A1c 6.1 Calcium 8.6 Phosphorus 3.1 Magnesium 1.9 Total Bilirubin 5.3 H AST 499 H D ALT 655 H D Alkaline Phosphatase 149 H Total Protein 6.7 Albumin 3.6 Globulin 3.1 Albumin/Globulin Ratio 1.2 Triglycerides 42 Cholesterol 137 LDL Cholesterol Direct 45 HDL Cholesterol 65 Amylase 734 H Lipase 2786 H TSH 3rd Generation 1.01 Hepatitis A IgM Ab Negative Hep Bs Antigen Negative Hep B Core IgM Ab Negative Hepatitis C Antibody Negative Attending/Attestation - Attestation I have personally seen and examined this patient.: Yes I have fully participated in the care of the patient.: Yes I have reviewed all pertinent clinical information: Yes Notes (Text): 11/19/16 16:05 I have seen and examined patient with GI fellow. Agree with above documentation with following additions. In brief, this is a 46 year old female with history of cholelithiasis and uterine fibroids who presents to hospital with complaint of abdominal pain. She describes sudden onset epigastric abdominal pain, 9/10 intensity which was radiating to back and started 2 days ago. Prior to this she was in usual state of health. This was associated with nausea and non-bloody emesis, last episode yesterday. She otherwise denies fever/chills, weight loss, rectal bleeding, jaundice, pruritis, or similar prior episodes. No prior endoscopic evaluation. Abdominal pain Cholelithiasis, gallstone pancreatitis Transaminitis - NPO - Continue with IVF hydration, pain control - MRCP imaging ordered to evaluate for choledocholithiasis, will follow up results - LFTs trending down, continue to monitor - Patient tentatively scheduled for cholecystectomy tomorrow, however pending results of imaging patient may require ERCP prior to operative intervention for stone extraction +/- sphincterotomy if distal CBD filling defect noted - Case discussed with Dr. Hatfield
--- NOTE | 2016-11-19 16:17 | MRI ---
PROCEDURE: Magnetic Resonance Cholangiopancreatography HISTORY: COMPARISON: None available. TECHNIQUE: Multiplanar, multisequence MR images of the abdomen were obtained, including heavily T2 weighted MRCP images of the biliary system. Rotating maximum intensity projection images of the biliary system were generated. FINDINGS: MRCP: The common bile duct is of a normal caliber. It measures approximately 6 mm in diameter. There are several small filling defects in the distal common bile duct likely representing choledocholithiasis. . LIVER: Normal size, contour and signal intensity. No mass. No intrahepatic biliary dilatation. Probable calculus within intrahepatic biliary duct centrally in left hepatic lobe, best seen on series 5, image 11 GALLBLADDER: Multiple gallstones. No mural thickening or pericholecystic fluid seen. SPLEEN: Normal size, contour and signal intensity. No focal mass. PANCREAS: Normal in appearance without evidence of mass or pancreatic ductal dilatation. No peripancreatic fluid or edema noted. ADRENALS: Unremarkable. KIDNEYS: Unremarkable. AORTA: No aneurysm. ASCITES: None. OTHER FINDINGS: None. IMPRESSION: Cholelithiasis. Choledocholithiasis. No evidence of cholecystitis. No evidence of pancreatitis. Probable intrahepatic biliary calculus, nonobstructing.
--- NOTE | 2016-11-19 20:28 | CARD ---
APPROVED REPORT EKG Measurement Heart [id number] MT [id number] <Conclusion> Normal sinus rhythm Normal ECG
[2016-11-20] MEDS: Sodium Chloride 0.9% 1,000 ML IV SCH ×6 (01:03→21:46)
[2016-11-20 08:00] LABS: BASO % 0.7 % (0.0-2.0); EOS # 0.1 K/uL (0.0-0.7); EOS % 1.8 % (0.0-4.0); HEMATOCRIT 37.8 % (34.0-47.0); LYMPH # 0.9 K/uL (1.0-4.3); LYMPH % 19.9 % (20.0-40.0); MEAN CELL VOLUME 95.4 fL (81.0-99.0); MEAN CORPUSCULAR HEMOGLOBIN 31.3 pg (27.0-31.0); MEAN CORPUSCULAR HGB CONC 32.8 g/dL (33.0-37.0); MEAN PLATELET VOLUME 8.9 fL (7.2-11.7); MONO # 0.4 K/uL (0.0-0.8); MONO % 7.5 % (0.0-10.0); RED CELL DISTRIBUTION WIDTH 13.8 % (11.5-14.5); WHITE BLOOD COUNT 4.7 K/uL (4.8-10.8)
[2016-11-20 08:06] LABS: INR 1.1
[2016-11-20 08:08] LABS: CHLORIDE 108 mmol/L (98-107)
[2016-11-20 08:09] LABS: POTASSIUM 3.6 mmol/L (3.6-5.2); SODIUM 139 mmol/L (132-148)
[2016-11-20 08:11] LABS: ALB/GLOB RATIO 1.1 (1.0-2.1); ALKALINE PHOSPHATASE 133 U/L (38-126); ALT/SGPT 446 U/L (9-52); AST/SGOT 142 U/L (14-36); BILIRUBIN,TOTAL 1.4 mg/dL (0.2-1.3); BLOOD UREA NITROGEN 10 mg/dL (7-17); CARBON DIOXIDE 16 mmol/L (22-30); GFR AFRICAN-AMERICAN > 60; GLUCOSE,RANDOM 54 mg/dL (65-105); PHOSPHOROUS 2.9 mg/dL (2.5-4.5); TOTAL PROTEIN 6.6 g/dL (6.3-8.3)
[2016-11-20 08:12] LABS: CALCIUM 8.5 mg/dl (8.6-10.4); MAGNESIUM 1.9 mg/dL (1.6-2.3)
--- NOTE | 2016-11-20 10:24 | CP.PCM.PN ---
Addendum entered and electronically signed by Sal Gasca DO 11/20/16 13:00 : Planning for Friday OR. PGY3 Original Note: <Sal Gasca - Last Filed: 11/20/16 10:22> Subjective - Date & Time of Evaluation Date of Evaluation: 11/20/16 Time of Evaluation: 08:40 - Subjective Subjective: General Surgery Pt S&E, NAEO. Denies any complaints at this time. Pt is NPO for ERCP today at 2pm. MRCP showed choledocholithiasis. Objective - Vital Signs/Intake and Output Vital Signs (last 24 hours): Temp Pulse Resp BP Pulse Ox 97.9 F 85 20 123/68 99 11/20/16 08:00 11/20/16 08:00 11/20/16 08:00 11/20/16 08:00 11/20/16 08:00 Intake and Output: 11/20/16 11/20/16 06:59 18:59 Intake Total 1600 Balance 1600 - Medications Medications: Current Medications Sodium Chloride (Sodium Chloride 0.9%) 1,000 mls @ 200 mls/hr IV .Q5H [facility] Last Admin: 11/20/16 06:12 Dose: 200 mls/hr Morphine Sulfate (Morphine) 2 mg IVP Q4 PRN PRN Reason: Pain, moderate (4-7) Ondansetron HCl (Zofran Inj) 4 mg IVP Q4 PRN PRN Reason: Nausea/Vomiting Pantoprazole Sodium (Protonix Inj) 40 mg IVP DAILY [facility] Last Admin: 11/19/16 10:42 Dose: 40 mg - Labs Labs: 11/20/16 07:48 11/20/16 07:48 PT 12.6 SECONDS (9.7-12.2) H 11/20/16 07:48 INR 1.1 11/20/16 07:48 APTT 37 SECONDS (21-34) H 11/20/16 07:48 - Constitutional Appears: Non-toxic, No Acute Distress - Head Exam Head Exam: ATRAUMATIC, NORMOCEPHALIC - Eye Exam Eye Exam: EOMI. absent: Scleral icterus - Respiratory Exam Respiratory Exam: NORMAL BREATHING PATTERN. absent: Respiratory Distress - GI/Abdominal Exam GI & Abdominal Exam: Soft. absent: Distended, Tenderness - Neurological Exam Neurological Exam: Alert, Awake - Skin Skin Exam: Dry, Warm Assessment and Plan - Assessment and Plan (Free Text) Assessment: 46F with Gallstone pancreatitis and choledocolithiasis Plan: F/U ERCP LFTs trending down Will reschedule Lap Lashawn Will D/W Dr. Alysia Gasca PGY3 <Anatoliy Hatfield - Last Filed: 11/20/16 18:12> Objective - Vital Signs/Intake and Output Vital Signs (last 24 hours): Temp Pulse Resp BP Pulse Ox 97.6 F 89 20 147/92 H 100 11/20/16 15:35 11/20/16 16:57 11/20/16 15:35 11/20/16 15:35 11/20/16 15:35 Intake and Output: 11/20/16 11/20/16 06:59 18:59 Intake Total 1600 400 Balance 1600 400 - Medications Medications: Current Medications Sodium Chloride (Sodium Chloride 0.9%) 1,000 mls @ 200 mls/hr IV .Q5H [facility] Last Admin: 11/20/16 11:45 Dose: Not Given Morphine Sulfate (Morphine) 2 mg IVP Q4 PRN PRN Reason: Pain, moderate (4-7) Ondansetron HCl (Zofran Inj) 4 mg IVP Q4 PRN PRN Reason: Nausea/Vomiting Pantoprazole Sodium (Protonix Inj) 40 mg IVP DAILY [facility] Last Admin: 11/20/16 11:45 Dose: 40 mg - Labs Labs: 11/20/16 07:48 11/20/16 07:48 PT 12.6 SECONDS (9.7-12.2) H 11/20/16 07:48 INR 1.1 11/20/16 07:48 APTT 37 SECONDS (21-34) H 11/20/16 07:48 Attending/Attestation - Attestation I have personally seen and examined this patient.: Yes I have fully participated in the care of the patient.: Yes I have reviewed all pertinent clinical information, including history, physical exam and plan: Yes Notes (Text): 11/20/16 18:10 Pt was seen and examined at bedside on 11/20/16 Agree with above note and assessment. S/P ERCP Repeat LFTs and Amylase and Lipase in am Possible OR for Lap cholecystectomy on Friday We will f.u
--- NOTE | 2016-11-20 10:55 | CP.PCM.PN ---
<Julia Castle - Last Filed: 11/20/16 10:47> Subjective - Date & Time of Evaluation Date of Evaluation: 11/20/16 Time of Evaluation: 07:10 - Subjective Subjective: PGY [address] Gross: Patient seen and evaluated at bedside this morning. Patient states that her abdominal pain has resolved. She is NPO for ERCP today. She denies N/V, fever, chills. She has no other complaints such as headache, change sin vision, CP, SOB , N/V, diarrhea/constipation, pain or swelling in the extremities. She is aware that at some point in the future she will need to gall bladder removed and she is agreeable to the surgery. Objective - Vital Signs/Intake and Output Vital Signs (last 24 hours): Temp Pulse Resp BP Pulse Ox 97.9 F 85 20 123/68 99 11/20/16 08:00 11/20/16 08:00 11/20/16 08:00 11/20/16 08:00 11/20/16 08:00 Intake and Output: 11/20/16 11/20/16 06:59 18:59 Intake Total 1600 Balance 1600 - Medications Medications: Current Medications Sodium Chloride (Sodium Chloride 0.9%) 1,000 mls @ 200 mls/hr IV .Q5H [facility] Last Admin: 11/20/16 06:12 Dose: 200 mls/hr Morphine Sulfate (Morphine) 2 mg IVP Q4 PRN PRN Reason: Pain, moderate (4-7) Ondansetron HCl (Zofran Inj) 4 mg IVP Q4 PRN PRN Reason: Nausea/Vomiting Pantoprazole Sodium (Protonix Inj) 40 mg IVP DAILY [facility] Last Admin: 11/19/16 10:42 Dose: 40 mg - Labs Labs: 11/20/16 07:48 11/20/16 07:48 PT 12.6 SECONDS (9.7-12.2) H 11/20/16 07:48 INR 1.1 11/20/16 07:48 APTT 37 SECONDS (21-34) H 11/20/16 07:48 - Constitutional Appears: No Acute Distress - Head Exam Head Exam: ATRAUMATIC, NORMAL INSPECTION - Eye Exam Eye Exam: EOMI, Normal appearance, PERRL Pupil Exam: NORMAL ACCOMODATION - ENT Exam ENT Exam: Mucous Membranes Moist - Respiratory Exam Respiratory Exam: Clear to Ausculation Bilateral, NORMAL BREATHING PATTERN. absent: Accessory Muscle Use, Rales, Rhonchi, Wheezes, Respiratory Distress - Cardiovascular Exam Cardiovascular Exam: REGULAR RHYTHM, +S1, +S2. absent: Murmur - GI/Abdominal Exam GI & Abdominal Exam: Soft, Normal Bowel Sounds. absent: Distended, Firm, Guarding, Tenderness - Extremities Exam Extremities Exam: Normal Inspection. absent: Pedal Edema - Back Exam Back Exam: NORMAL INSPECTION. absent: CVA tenderness (L), CVA tenderness (R), paraspinal tenderness - Neurological Exam Neurological Exam: Alert, Awake, CN II-XII Intact, Oriented x3 Neuro motor strength exam: Left Upper Extremity: 5, Right Upper Extremity: 5, Left Lower Extremity: 5, Right Lower Extremity: 5 - Psychiatric Exam Psychiatric exam: Normal Affect, Normal Mood - Skin Skin Exam: Dry, Intact, Normal Color, Warm Assessment and Plan - Assessment and Plan (Free Text) Assessment: 1. Pancreatitis Resolving, possibly secondary to cholelithiasis AST/ALT: 142/466 - improving 1291/1228 (no previous labs to compare) Alk Phos 150 Bilirubin 1.4 - improving Lipase 926 [place] [address] on admission NPO Normal Saline IV @200cc Zofran 4 mg IVP q4h PRN for nausea Morphine 2 mg IVP q4h PRN for pain Hepatitis negative TSH wnl HbA1c = 6 Tchol 137, Trig 42, LDL 45, HDL 65 f/u AM labs 2. Cholelithiasis/Choledocholithiasis For ERCP today MRCP - cholelithiasis. choledocholithiasis (several small filling defects in the DCBD). no evidence of cholecystitis. no evidence of pancreatitis. probable intrahepatic biliary calculus nonobstructing. Abdominal US: Common bile duct 0.68 cm, cholelithiasis, elevated bilirubin General surgery, Dr. Hatfield, consulted. Help appreciated. GI consulted, Dr. Abrams help appreciated Per surgery, will consider cholecystectomy post ERCP 3. Leukocytosis Resolved WBC 4.7 (WBC 12.2 on admission) likely secondary to pancreatitis Afebrile Monitor 4. Hypokalemia Resolved 5. Prophylaxis SCD Protonix 40 mg IVP daily NPO <Wes Gross - Last Filed: 11/20/16 13:18> Objective - Vital Signs/Intake and Output Vital Signs (last 24 hours): Temp Pulse Resp BP Pulse Ox 97.9 F 85 20 123/68 99 11/20/16 08:00 11/20/16 08:00 11/20/16 08:00 11/20/16 08:00 11/20/16 08:00 Intake and Output: 11/20/16 11/20/16 06:59 18:59 Intake Total 1600 Balance 1600 - Medications Medications: Current Medications Sodium Chloride (Sodium Chloride 0.9%) 1,000 mls @ 200 mls/hr IV .Q5H [facility] Last Admin: 11/20/16 11:45 Dose: Not Given Morphine Sulfate (Morphine) 2 mg IVP Q4 PRN PRN Reason: Pain, moderate (4-7) Ondansetron HCl (Zofran Inj) 4 mg IVP Q4 PRN PRN Reason: Nausea/Vomiting Pantoprazole Sodium (Protonix Inj) 40 mg IVP DAILY [facility] Last Admin: 11/20/16 11:45 Dose: 40 mg - Labs Labs: 11/20/16 07:48 11/20/16 07:48 PT 12.6 SECONDS (9.7-12.2) H 11/20/16 07:48 INR 1.1 11/20/16 07:48 APTT 37 SECONDS (21-34) H 11/20/16 07:48 Attending/Attestation - Attestation I have personally seen and examined this patient.: Yes I have fully participated in the care of the patient.: Yes I have reviewed all pertinent clinical information, including history, physical exam and plan: Yes Notes (Text): Medical Attending: Patient was seen and examined by me. Agree with the above note by the resident. The patient will be undergoing ERCP today, and sometimes afterwards cholsectomy by surgery. At this time the LFTs as well as the Lipase are decreasing. Patient reported she felt comfortable and did not have pain with palpation when we saw and examined the patient thank you Wes Gross
[2016-11-20] MEDS ORDERED: Iohexol 240 (50 ml) ONE (14:03)
[2016-11-21] MEDS: Sodium Chloride 0.9% 1,000 ML IV SCH ×2 (02:53→18:04)
--- NOTE | 2016-11-21 08:00 | CP.PCM.PN ---
<Julia Castle - Last Filed: 11/21/16 08:52> Subjective - Date & Time of Evaluation Date of Evaluation: 11/21/16 Time of Evaluation: 07:00 - Subjective Subjective: PGY [address] Gross: Patient seen and evaluated at bedside this morning. Patient states that her abdominal pain has resolved. She is on a liquid diet. 6 stones removed during ERCP yesterday. She will have a lap lashawn procedure tomorrow. She denies N/V, fever, chills. She has no other complaints such as headache, change sin vision, CP, SOB, N/V, diarrhea/constipation, pain or swelling in the extremities. Objective - Vital Signs/Intake and Output Vital Signs (last 24 hours): Temp Pulse Resp BP Pulse Ox 98.2 F 54 L 20 125/74 99 11/21/16 00:00 11/21/16 00:00 11/21/16 00:00 11/21/16 00:00 11/21/16 00:00 Intake and Output: 11/21/16 11/21/16 06:59 18:59 Intake Total 3000 Balance 3000 - Medications Medications: Current Medications Sodium Chloride (Sodium Chloride 0.9%) 1,000 mls @ 200 mls/hr IV .Q5H [facility] Last Admin: 11/21/16 02:53 Dose: 200 mls/hr Morphine Sulfate (Morphine) 2 mg IVP Q4 PRN PRN Reason: Pain, moderate (4-7) Ondansetron HCl (Zofran Inj) 4 mg IVP Q4 PRN PRN Reason: Nausea/Vomiting Pantoprazole Sodium (Protonix Inj) 40 mg IVP DAILY [facility] Last Admin: 11/20/16 11:45 Dose: 40 mg - Labs Labs: 11/20/16 07:48 11/20/16 07:48 PT 12.6 SECONDS (9.7-12.2) H 11/20/16 07:48 INR 1.1 11/20/16 07:48 APTT 37 SECONDS (21-34) H 11/20/16 07:48 - Constitutional Appears: Non-toxic, No Acute Distress - Head Exam Head Exam: ATRAUMATIC, NORMAL INSPECTION - Eye Exam Eye Exam: EOMI, Normal appearance, PERRL Pupil Exam: NORMAL ACCOMODATION - ENT Exam ENT Exam: Mucous Membranes Moist - Respiratory Exam Respiratory Exam: Clear to Ausculation Bilateral, NORMAL BREATHING PATTERN. absent: Accessory Muscle Use, Chest Wall Tenderness, Respiratory Distress - Cardiovascular Exam Cardiovascular Exam: REGULAR RHYTHM, +S1, +S2 - GI/Abdominal Exam GI & Abdominal Exam: Soft, Normal Bowel Sounds. absent: Distended, Firm, Guarding, Tenderness - Extremities Exam Extremities Exam: Normal Inspection. absent: Calf Tenderness, Pedal Edema - Back Exam Back Exam: NORMAL INSPECTION. absent: CVA tenderness (L), CVA tenderness (R), paraspinal tenderness - Neurological Exam Neurological Exam: Alert, Awake, CN II-XII Intact, Oriented x3 Neuro motor strength exam: Left Upper Extremity: 5, Right Upper Extremity: 5, Left Lower Extremity: 5, Right Lower Extremity: 5 - Psychiatric Exam Psychiatric exam: Normal Affect, Normal Mood - Skin Skin Exam: Dry, Intact, Normal Color, Warm Assessment and Plan - Assessment and Plan (Free Text) Assessment: 1. Pancreatitis Resolving, possibly secondary to cholelithiasis AST/ALT: 64/323 improving, were elevated on admission (1291/1288) Alk Phos 150 Bilirubin 1.3 - improving Lipase 926 [place] [address] on admission liquid diet as tolerated Normal Saline IV @ 100cc/hour Zofran 4 mg IVP q4h PRN for nausea Morphine 2 mg IVP q4h PRN for pain Hepatitis negative TSH wnl HbA1c = 6 Tchol 137, Trig 42, LDL 45, HDL 65 f/u AM labs 2. Cholelithiasis/Choledocholithiasis For Lap Lashawn tomorrow s/p ERCP with stone extraction and sphincterotomy - 6 stones removed MRCP - cholelithiasis. choledocholithiasis (several small filling defects in the DCBD). no evidence of cholecystitis. no evidence of pancreatitis. probable intrahepatic biliary calculus nonobstructing. Abdominal US: Common bile duct 0.68 cm, cholelithiasis, elevated bilirubin General surgery, Dr. Hatfield, consulted. Help appreciated. GI consulted, Dr. Abrams help appreciated Per surgery, will consider cholecystectomy post ERCP 3. Leukocytosis Resolved WBC 3.7 (WBC 12.2 on admission) likely secondary to pancreatitis Afebrile Monitor 4. Hypokalemia Resolved 5. Prophylaxis SCD Protonix 40 mg IVP daily Liquid diet as tolerated, NPO past midnight for OR tomorrow <Gross,Peter H - Last Filed: 11/21/16 11:28> Objective - Vital Signs/Intake and Output Vital Signs (last 24 hours): Temp Pulse Resp BP Pulse Ox 98.5 F 51 L 20 134/60 99 11/21/16 08:00 11/21/16 08:48 11/21/16 08:00 11/21/16 08:00 11/21/16 08:00 Intake and Output: 11/21/16 11/21/16 06:59 18:59 Intake Total 3000 Balance 3000 - Medications Medications: Current Medications Sodium Chloride (Sodium Chloride 0.9%) 1,000 mls @ 100 mls/hr IV .Q10H [facility] Morphine Sulfate (Morphine) 2 mg IVP Q4 PRN PRN Reason: Pain, moderate (4-7) Ondansetron HCl (Zofran Inj) 4 mg IVP Q4 PRN PRN Reason: Nausea/Vomiting Pantoprazole Sodium (Protonix Inj) 40 mg IVP DAILY [facility] Last Admin: 11/20/16 11:45 Dose: 40 mg - Labs Labs: 11/21/16 07:48 11/21/16 07:48 PT 11.8 SECONDS (9.7-12.2) 11/21/16 07:48 INR 1.1 11/21/16 07:48 APTT 32 SECONDS (21-34) D 11/21/16 07:48 Attending/Attestation - Attestation I have personally seen and examined this patient.: Yes I have fully participated in the care of the patient.: Yes I have reviewed all pertinent clinical information, including history, physical exam and plan: Yes Notes (Text): Medical Attending: Patient was seen and examined by me. Agree with the above note by the resident The patient completed ERCP yesterday and GI was able to extract several stones and sludge. Patient reported this morning was feeling well. She did not have any complaints or concerns when we saw her - currently pending cholesectomy at this moment. thank you Wes Gross
[2016-11-21 08:02] LABS: CHLORIDE 104 mmol/L (98-107); POTASSIUM 3.7 mmol/L (3.6-5.2); SODIUM 139 mmol/L (132-148)
[2016-11-21 08:04] LABS: BILIRUBIN,TOTAL 1.5 mg/dL (0.2-1.3); GFR AFRICAN-AMERICAN > 60
[2016-11-21 08:05] LABS: ALB/GLOB RATIO 1.1 (1.0-2.1); ALKALINE PHOSPHATASE 114 U/L (38-126); ALT/SGPT 323 U/L (9-52); AST/SGOT 64 U/L (14-36); BLOOD UREA NITROGEN 5 mg/dL (7-17); CARBON DIOXIDE 22 mmol/L (22-30); GLUCOSE,RANDOM 76 mg/dL (65-105); PHOSPHOROUS 2.8 mg/dL (2.5-4.5); TOTAL PROTEIN 6.4 g/dL (6.3-8.3)
[2016-11-21 08:06] LABS: CALCIUM 8.3 mg/dl (8.6-10.4); MAGNESIUM 1.8 mg/dL (1.6-2.3)
[2016-11-21 08:07] LABS: BASO % 0.6 % (0.0-2.0); EOS # 0.1 K/uL (0.0-0.7); EOS % 1.4 % (0.0-4.0); HEMATOCRIT 37.1 % (34.0-47.0); LYMPH # 0.9 K/uL (1.0-4.3); LYMPH % 24.7 % (20.0-40.0); MEAN CELL VOLUME 94.9 fL (81.0-99.0); MEAN CORPUSCULAR HEMOGLOBIN 30.6 pg (27.0-31.0); MEAN CORPUSCULAR HGB CONC 32.3 g/dL (33.0-37.0); MEAN PLATELET VOLUME 9.1 fL (7.2-11.7); MONO # 0.3 K/uL (0.0-0.8); MONO % 7.9 % (0.0-10.0); NRBC % 0.1 % (0.0-2.0); RED CELL DISTRIBUTION WIDTH 13.7 % (11.5-14.5); WHITE BLOOD COUNT 3.7 K/uL (4.8-10.8)
--- NOTE | 2016-11-21 08:08 | CP.PCM.PN ---
<Delphine Patten - Last Filed: 11/21/16 08:04> Subjective - Date & Time of Evaluation Date of Evaluation: 11/21/16 Time of Evaluation: 07:00 - Subjective Subjective: General Surgery - Dr. Hatfield Pt S&E. MEDHAT. Pt went for ERCP yesterday w/ sphincterotomy and stone removal( x6). This morning pt. denies any complaints. She has no abdominal pain, nausea /vomiting, fevers/chills. She is on clear liquid diet and tolerating. Objective - Vital Signs/Intake and Output Vital Signs (last 24 hours): Temp Pulse Resp BP Pulse Ox 98.2 F 54 L 20 125/74 99 11/21/16 00:00 11/21/16 00:00 11/21/16 00:00 11/21/16 00:00 11/21/16 00:00 Intake and Output: 11/21/16 11/21/16 06:59 18:59 Intake Total 3000 Balance 3000 - Medications Medications: Current Medications Sodium Chloride (Sodium Chloride 0.9%) 1,000 mls @ 200 mls/hr IV .Q5H [facility] Last Admin: 11/21/16 02:53 Dose: 200 mls/hr Morphine Sulfate (Morphine) 2 mg IVP Q4 PRN PRN Reason: Pain, moderate (4-7) Ondansetron HCl (Zofran Inj) 4 mg IVP Q4 PRN PRN Reason: Nausea/Vomiting Pantoprazole Sodium (Protonix Inj) 40 mg IVP DAILY [facility] Last Admin: 11/20/16 11:45 Dose: 40 mg - Labs Labs: 11/20/16 07:48 11/20/16 07:48 PT 12.6 SECONDS (9.7-12.2) H 11/20/16 07:48 INR 1.1 11/20/16 07:48 APTT 37 SECONDS (21-34) H 11/20/16 07:48 - Constitutional Appears: Well, No Acute Distress - Head Exam Head Exam: ATRAUMATIC, NORMAL INSPECTION, NORMOCEPHALIC - Eye Exam Eye Exam: Normal appearance. absent: Scleral icterus - Respiratory Exam Respiratory Exam: NORMAL BREATHING PATTERN. absent: Respiratory Distress - Cardiovascular Exam Cardiovascular Exam: REGULAR RHYTHM - GI/Abdominal Exam GI & Abdominal Exam: Soft. absent: Distended, Guarding, Tenderness, Rebound - Neurological Exam Neurological Exam: Alert, Oriented x3 - Psychiatric Exam Psychiatric exam: Normal Affect, Normal Mood - Skin Skin Exam: Dry, Intact Assessment and Plan - Assessment and Plan (Free Text) Assessment: 46 yo F w/ gallstone pancreatitis, choledocholithiasis, s/p ERCP 11/20 -Doing well s/p ERCP -F/U LFTs, Lipase today -Plan for OR tomorrow for Cholecystectomy -NPO after midnight - Dr. Alysia Patten PGY2 <Aantoliy Hatfield B - Last Filed: 11/22/16 15:17> Objective - Vital Signs/Intake and Output Vital Signs (last 24 hours): Temp Pulse Resp BP Pulse Ox 96.2 F L 72 10 L 151/74 H 100 11/22/16 12:20 11/22/16 13:14 11/22/16 13:14 11/22/16 13:14 11/22/16 13:14 Intake and Output: 11/22/16 11/22/16 06:59 18:59 Intake Total 1850 50 Output Total 1300 Balance 1850 -1250 - Medications Medications: Current Medications Sodium Chloride (Sodium Chloride 0.9%) 1,000 mls @ 100 mls/hr IV .Q10H [facility] Last Admin: 11/22/16 05:25 Dose: 100 mls/hr Morphine Sulfate (Morphine) 4 mg IVP Q4 PRN PRN Reason: Pain, moderate (4-7) Last Admin: 11/22/16 13:46 Dose: 4 mg Ondansetron HCl (Zofran Inj) 4 mg IVP Q4 PRN PRN Reason: Nausea/Vomiting Oxycodone/Acetaminophen (Percocet 5/325 Mg Tab) 1 tab PO Q4H PRN PRN Reason: Pain, moderate (4-7) Stop: 11/25/16 13:12 Pantoprazole Sodium (Protonix Inj) 40 mg IVP DAILY [facility] Last Admin: 11/22/16 09:24 Dose: 40 mg - Labs Labs: 11/22/16 07:47 11/22/16 07:47 PT 12.1 SECONDS (9.7-12.2) 11/22/16 07:47 INR 1.1 11/22/16 07:47 APTT 31 SECONDS (21-34) 11/22/16 07:47 Attending/Attestation - Attestation I have personally seen and examined this patient.: Yes I have fully participated in the care of the patient.: Yes I have reviewed all pertinent clinical information, including history, physical exam and plan: Yes Notes (Text): 11/22/16 15:16 Pt was seen and examined at bedside on 11/21/16 Agree with above note and assessment Pt with GS pancreatitis s/p ERCP OR for Lap cholecystectomy tomorrow Plan d.w pt in detail Risk and benefit explained in detail.
--- NOTE | 2016-11-21 08:12 | CP.PCM.PN ---
Subjective - Date & Time of Evaluation Date of Evaluation: 11/21/16 Time of Evaluation: 08:09 - Subjective Subjective: Patient seen and examined. Resting in bed comfortably, no acute events overnight. She denies abdominal pain, nausea, vomiting, diarrhea, fever/ chills. Tolerating PO liquids without difficulty. Review of vitals from today are normal. 12 point review of systems performed, negative aside from mentioned above. Objective - Vital Signs/Intake and Output Vital Signs (last 24 hours): Temp Pulse Resp BP Pulse Ox 98.2 F 54 L 20 125/74 99 11/21/16 00:00 11/21/16 00:00 11/21/16 00:00 11/21/16 00:00 11/21/16 00:00 Intake and Output: 11/21/16 11/21/16 06:59 18:59 Intake Total 3000 Balance 3000 - Medications Medications: Current Medications Sodium Chloride (Sodium Chloride 0.9%) 1,000 mls @ 200 mls/hr IV .Q5H [facility] Last Admin: 11/21/16 02:53 Dose: 200 mls/hr Morphine Sulfate (Morphine) 2 mg IVP Q4 PRN PRN Reason: Pain, moderate (4-7) Ondansetron HCl (Zofran Inj) 4 mg IVP Q4 PRN PRN Reason: Nausea/Vomiting Pantoprazole Sodium (Protonix Inj) 40 mg IVP DAILY [facility] Last Admin: 11/20/16 11:45 Dose: 40 mg - Labs Labs: 11/20/16 07:48 11/21/16 07:48 PT 12.6 SECONDS (9.7-12.2) H 11/20/16 07:48 INR 1.1 11/20/16 07:48 APTT 37 SECONDS (21-34) H 11/20/16 07:48 - Constitutional Appears: Non-toxic, No Acute Distress - Head Exam Head Exam: NORMAL INSPECTION - Eye Exam Eye Exam: EOMI, Normal appearance - ENT Exam ENT Exam: Mucous Membranes Moist - Respiratory Exam Respiratory Exam: Clear to Ausculation Bilateral - Cardiovascular Exam Cardiovascular Exam: REGULAR RHYTHM, +S1, +S2 - GI/Abdominal Exam GI & Abdominal Exam: Soft, Normal Bowel Sounds Additional comments: non tender to palpation in four quadrants - Extremities Exam Extremities Exam: Normal Inspection - Skin Skin Exam: Dry, Intact, Normal Color, Warm Assessment and Plan - Assessment and Plan (Free Text) Assessment: Acute gallstone pancreatitis s/p ERCP with stone extraction and sphincterotomy Plan: - Liquid diet as tolerated - LFTs trending down, continue to monitor - Patient planned for cholecystectomy tomorrow - No ongoing GI issues, further plan as per surgical team. Suggest outpatient routine age appropriate colonoscopy for cancer screening. Will sign off case, please reconsult as necessary, thank you.
[2016-11-21 08:27] LABS: INR 1.1
[2016-11-22] MEDS: Sodium Chloride 0.9% 1,000 ML IV SCH (05:25)
[2016-11-22 07:55] LABS: BASO % 1.5 % (0.0-2.0); EOS # 0.1 K/uL (0.0-0.7); HEMATOCRIT 36.4 % (34.0-47.0); MEAN CELL VOLUME 93.8 fL (81.0-99.0); MEAN CORPUSCULAR HEMOGLOBIN 30.7 pg (27.0-31.0); MEAN CORPUSCULAR HGB CONC 32.7 g/dL (33.0-37.0); MEAN PLATELET VOLUME 8.8 fL (7.2-11.7); MONO # 0.3 K/uL (0.0-0.8); MONO % 8.2 % (0.0-10.0); NRBC % 0.1 % (0.0-2.0); RED CELL DISTRIBUTION WIDTH 13.5 % (11.5-14.5); WHITE BLOOD COUNT 3.3 K/uL (4.8-10.8)
[2016-11-22 08:00] LABS: INR 1.1
[2016-11-22 08:05] LABS: CHLORIDE 104 mmol/L (98-107); POTASSIUM 3.4 mmol/L (3.6-5.2); SODIUM 141 mmol/L (132-148)
[2016-11-22 08:07] LABS: BILIRUBIN,TOTAL 0.9 mg/dL (0.2-1.3); GFR AFRICAN-AMERICAN > 60
[2016-11-22 08:08] LABS: ALB/GLOB RATIO 1.1 (1.0-2.1); ALKALINE PHOSPHATASE 102 U/L (38-126); ALT/SGPT 235 U/L (9-52); AST/SGOT 43 U/L (14-36); CARBON DIOXIDE 24 mmol/L (22-30); GLUCOSE,RANDOM 90 mg/dL (65-105); PHOSPHOROUS 2.6 mg/dL (2.5-4.5); TOTAL PROTEIN 6.1 g/dL (6.3-8.3)
[2016-11-22 08:09] LABS: CALCIUM 8.3 mg/dl (8.6-10.4); MAGNESIUM 1.7 mg/dL (1.6-2.3)
[2016-11-22 08:13] LABS: BLOOD UREA NITROGEN 2 mg/dL (7-17)
--- NOTE | 2016-11-22 09:45 | RAD ---
PROCEDURE: Fluoroscopy up to 1 hr. HISTORY: CBD STONES COMPARISON: None TECHNIQUE: Standard protocol for this study/examination. FINDINGS: Total fluoroscopic time (continuous mode) utilized during the procedure: 74.0 seconds IMPRESSION: Less than 1 hr fluoroscopic time utilized during performance of the procedure.
[2016-11-22] MEDS ORDERED: Lidocaine 1% w Epi 1:100,000 Inj ONE (09:52)
[2016-11-22] MEDS ORDERED: Bupivacaine HCl 0.25% PF (10 ml) Inj ONE ×2 (09:53→12:03)
[2016-11-22] MEDS ORDERED: cefOXitin IV 1 gm in Dextrose 50 ML IVPB ONE (09:53)
[2016-11-22] MEDS ORDERED: Lactated Ringer's 1,000 ML IV ONE ×2 (10:10→10:25)
[2016-11-22] MEDS ORDERED: Propofol 10 mg/ml Inj (20 ML) ONE (10:16)
[2016-11-22] MEDS ORDERED: Midazolam 2 MG/2 ML VIAL ONE (10:16)
[2016-11-22] MEDS ORDERED: Rocuronium 10 mg/ml (5 ml) ONE (10:50)
[2016-11-22] MEDS ORDERED: Succinylcholine Chloride 20 mg/ml Syr (5 ml) IV ONE (10:50)
--- NOTE | 2016-11-22 10:51 | CP.PCM.PN ---
<Julia Castle - Last Filed: 11/22/16 12:20> Subjective - Date & Time of Evaluation Date of Evaluation: 11/22/16 Time of Evaluation: 07:05 - Subjective Subjective: PGY [address] Gross: Patient seen and evaluated at bedside this morning. Patient states that her abdominal pain has resolved. She will have a lap lashawn procedure tomorrow. She denies N/V, fever, chills. She has no other complaints such as headache, change sin vision, CP, SOB, N/V, diarrhea/constipation, pain or swelling in the extremities. Objective - Vital Signs/Intake and Output Vital Signs (last 24 hours): Temp Pulse Resp BP Pulse Ox 97.8 F 55 L 18 121/73 98 11/22/16 08:00 11/22/16 08:00 11/22/16 08:00 11/22/16 08:00 11/22/16 08:00 Intake and Output: 11/22/16 11/22/16 06:59 18:59 Intake Total 1850 Balance 1850 - Medications Medications: Current Medications Sodium Chloride (Sodium Chloride 0.9%) 1,000 mls @ 100 mls/hr IV .Q10H [facility] Last Admin: 11/22/16 05:25 Dose: 100 mls/hr Morphine Sulfate (Morphine) 2 mg IVP Q4 PRN PRN Reason: Pain, moderate (4-7) Ondansetron HCl (Zofran Inj) 4 mg IVP Q4 PRN PRN Reason: Nausea/Vomiting Pantoprazole Sodium (Protonix Inj) 40 mg IVP DAILY [facility] Last Admin: 11/22/16 09:24 Dose: 40 mg - Labs Labs: 11/22/16 07:47 11/22/16 07:47 PT 12.1 SECONDS (9.7-12.2) 11/22/16 07:47 INR 1.1 11/22/16 07:47 APTT 31 SECONDS (21-34) 11/22/16 07:47 - Constitutional Appears: Non-toxic, No Acute Distress - Head Exam Head Exam: ATRAUMATIC, NORMAL INSPECTION - Eye Exam Eye Exam: EOMI, Normal appearance, PERRL Pupil Exam: NORMAL ACCOMODATION - ENT Exam ENT Exam: Mucous Membranes Moist - Respiratory Exam Respiratory Exam: Clear to Ausculation Bilateral, NORMAL BREATHING PATTERN. absent: Respiratory Distress - Cardiovascular Exam Cardiovascular Exam: REGULAR RHYTHM, +S1, +S2 - GI/Abdominal Exam GI & Abdominal Exam: Soft, Normal Bowel Sounds. absent: Distended, Firm, Guarding, Tenderness - Extremities Exam Extremities Exam: Normal Inspection. absent: Calf Tenderness, Pedal Edema - Back Exam Back Exam: NORMAL INSPECTION. absent: CVA tenderness (L), CVA tenderness (R), paraspinal tenderness - Neurological Exam Neurological Exam: Alert, Awake, Oriented x3. absent: CN II-XII Intact Neuro motor strength exam: Left Upper Extremity: 5, Right Upper Extremity: 5, Left Lower Extremity: 5, Right Lower Extremity: 5 - Psychiatric Exam Psychiatric exam: Normal Affect, Normal Mood - Skin Skin Exam: Dry, Intact, Normal Color, Warm Assessment and Plan - Assessment and Plan (Free Text) Assessment: 1. Pancreatitis Resolving, possibly secondary to cholelithiasis AST/ALT: 43/235 improving, were elevated on admission (1291/1288) Alk Phos 150 Bilirubin 1.3 - improving Lipase 926 [place] [address] on admission Normal Saline IV @ 100cc/hour Zofran 4 mg IVP q4h PRN for nausea Morphine 2 mg IVP q4h PRN for pain Hepatitis negative TSH wnl HbA1c = 6 Tchol 137, Trig 42, LDL 45, HDL 65 f/u AM labs 2. Cholelithiasis/Choledocholithiasis For Lap Lashawn today ERCP with stone extraction and sphincterotomy - 6 stones removed MRCP - cholelithiasis. choledocholithiasis (several small filling defects in the DCBD). no evidence of cholecystitis. no evidence of pancreatitis. probable intrahepatic biliary calculus nonobstructing. Abdominal US: Common bile duct 0.68 cm, cholelithiasis, elevated bilirubin General surgery, Dr. Hatfield, consulted. Help appreciated. GI consulted, Dr. Abrams help appreciated Per surgery, will consider cholecystectomy post ERCP 3. Leukocytosis Resolved WBC 3.7 (WBC 12.2 on admission) likely secondary to pancreatitis Afebrile Monitor 4. Hypokalemia Resolved 5. Prophylaxis SCD Protonix 40 mg IVP daily <Wes Gross - Last Filed: 11/22/16 13:25> Objective - Vital Signs/Intake and Output Vital Signs (last 24 hours): Temp Pulse Resp BP Pulse Ox 96.2 F L 72 10 L 151/74 H 100 11/22/16 12:20 11/22/16 13:14 11/22/16 13:14 11/22/16 13:14 11/22/16 13:14 Intake and Output: 11/22/16 11/22/16 06:59 18:59 Intake Total 1850 50 Balance 1850 50 - Medications Medications: Current Medications Hydromorphone HCl (Dilaudid) 0.5 mg IVP Q10M PRN PRN Reason: Pain, severe (8-10) Stop: 11/22/16 14:25 Sodium Chloride (Sodium Chloride 0.9%) 1,000 mls @ 100 mls/hr IV .Q10H [facility] Last Admin: 11/22/16 05:25 Dose: 100 mls/hr Morphine Sulfate (Morphine) 2 mg IVP Q4 PRN PRN Reason: Pain, moderate (4-7) Ondansetron HCl (Zofran Inj) 4 mg IVP Q4 PRN PRN Reason: Nausea/Vomiting Oxycodone/Acetaminophen (Percocet 5/325 Mg Tab) 1 tab PO Q4H PRN PRN Reason: Pain, moderate (4-7) Stop: 11/25/16 13:12 Pantoprazole Sodium (Protonix Inj) 40 mg IVP DAILY [facility] Last Admin: 11/22/16 09:24 Dose: 40 mg - Labs Labs: 11/22/16 07:47 11/22/16 07:47 PT 12.1 SECONDS (9.7-12.2) 11/22/16 07:47 INR 1.1 11/22/16 07:47 APTT 31 SECONDS (21-34) 11/22/16 07:47 Attending/Attestation - Attestation I have personally seen and examined this patient.: Yes I have fully participated in the care of the patient.: Yes I have reviewed all pertinent clinical information, including history, physical exam and plan: Yes Notes (Text): 11/22/16 13:21 Medical Attending: Patient was seen and examined by me. Agree with the above note by the resident. When we saw and examined the patient in the morning, she was not in any distress. She was pending going to the OR later today. Her lab work is stable, she had an ERCP the previous day. LFTs and Lipase stable at this time. thank you Wes Gross
[2016-11-22] MEDS ORDERED: Esmolol 100 mg/10ml Inj IV ONE (11:31)
[2016-11-22] MEDS ORDERED: Neostigmine Methylsulfate 3mg/3ml Syringe IV ONE (11:33)
[2016-11-22] MEDS: HYDROmorphone 0.5 mg/0.5 ml ISec IVP PRN ×4 (12:54→13:24)
--- NOTE | 2016-11-22 13:05 | PCM.SURG1 ---
Surgeon's Initial Post Op Note - Surgeon's Notes Surgeon: Alysia Pear Picker: [id number], Anju RFNA Type of Anesthesia: General Endo Pre-Operative Diagnosis: Gallstone pancreatitis, cholelithiasis Operative Findings: cholelithiasis Post-Operative Diagnosis: Gallstone pancreatitis, cholelithiasis Operation Performed: Robotic assisted lap cholecystectomy Specimen/Specimens Removed: gallbladder Estimated Blood Loss: EBL {In ML}: 10 Blood Products Given: N/A Drains Used: No Drains Post-Op Condition: Good Date of Surgery/Procedure: 11/22/16 Time of Surgery/Procedure: 10:30
[2016-11-22] MEDS ORDERED: Oxycodone/Acetaminophen 5/325 mg Tab PO PRN (13:11)
[2016-11-22] MEDS ORDERED: Morphine 4 MG/ML VIAL ONE (13:46)
[2016-11-22] MEDS ORDERED: Morphine 4 MG/ML VIAL IVP PRN (13:50)
[2016-11-22] MEDS ORDERED: Sodium Chloride 0.9% 1,000 ML IV ONE (14:30)
--- NOTE | 2016-11-22 15:28 | OP ---
PROCEDURE DATE: 11/22/2016 PREOPERATIVE DIAGNOSES: 1. Gallstone pancreatitis. 2. Cholelithiasis. 3. Status post endoscopic retrograde cholangiopancreatography and stone extraction from common bile duct. POST OPERATIVE DIAGNOSES: 1. Gallstone pancreatitis. 2. Cholelithiasis. 3. Status post endoscopic retrograde cholangiopancreatography and stone extraction from common bile duct. 4. Perihepatic and pericholecystic fluid collection. OPERATION DONE: 1. Robotic cholecystectomy. 2. Robotic drainage of perihepatic and pericholecystic fluid collection. SURGEON: Anatoliy Hatfield MD MEDICAL TYPIST: Malahti GUTIERREZ. Malathi was present from the beginning to the end of the procedure, helped in the prepping and draping, placement of the port , docking and undocking of the robot. SECOND MEDICAL TYPIST: Sal Gasca, PGY-3 resident. ANESTHESIA: General endotracheal tube anesthesia. ESTIMATED BLOOD LOSS: Around 50 mL. DRAINS: None INTRAOPERATIVE FINDINGS: The patient had acute cholecystitis and cholelithiasis as well as a very large cystic duct. The patient also had a perihepatic and pericholecystic serosanguineous fluid collection. PATHOLOGY: Gallbladder was sent for the pathology. Peritoneal fluid was sent for C/S. COMPLICATIONS: None. INTRAOPERATIVE STEPS: This 46-year-old female who was diagnosed with gallstone pancreatitis and patient underwent ERCP and stone removal for CBD stone. The patient was consented for robotic cholecystectomy, possible open. Brought to the OR, placed supine on the operating table. After induction of the anesthesia , the abdomen was prepped and draped in a usual sterile fashion. The infraumbilical transverse 1.5 cm incision was made at the incision site of previous operation. After incising skin and subcutaneous tissue, the fascia was incised. The camera port was placed. Another two 8 mm ports were placed in the left upper quadrant and right upper quadrant and a 5 mm port was placed in the right side in the midclavicular line. After that, the robot was brought in. Camera arm and arm 1 and arm 2 was docked and patient found to have fluid collection surrounding the perihepatic as well as the Shelly gallbladder area and it was serosanguineous fluid. All the fluid collection was drained and sent for C/S. and there was no apparent fluid collection surrounding part of the peritoneum. Now the gallbladder was retracted, the Calot's triangle dissection was done. Cystic duct and cystic artery was identified and patient was found to have a dilated cystic duct and intraoperative firefly was used to confirm the anatomy of this common bile duct as well as the cystic duct and the gallbladder. Due to the large size of the cystic duct, the cystic duct was divided with robotic stapler and the gallbladder was dissected free, taken in EndoCatch bag, taken out through the umbilical port site and sent to the table for the pathology. After proper hemostasis, the robot was undocked. The gallbladder was taken out through the umbilical port site and sent to the table for the pathology. The umbilical port site as well as the 12 mm port site for the robotic stapler were closed at 2 layers, the fascia with 0 Vicryl and skin with a 4-0 Monocryl. Dry sterile dressing was applied. The patient tolerated the procedure well. Count of instruments and gauze was correct. There was no apparent complication. The patient was extubated in the OR, sent to the postanesthesia care in stable condition. Anatoliy Hatfield MD cc: [id number] TT: 11/22/2016 15:27:28 jn MTDD
[2016-11-22 17:18] VITALS: RESP 20
[2016-11-23 01:04] VITALS: TEMP 98.2
[2016-11-23] MEDS: Sodium Chloride 0.9% 1,000 ML IV SCH ×2 (08:05→11:10)
[2016-11-23 08:44] LABS: BASO % 0.1 % (0.0-2.0); HEMATOCRIT 37.3 % (34.0-47.0); LYMPH # 0.7 K/uL (1.0-4.3); MEAN CELL VOLUME 94.1 fL (81.0-99.0); MEAN CORPUSCULAR HEMOGLOBIN 30.9 pg (27.0-31.0); MEAN CORPUSCULAR HGB CONC 32.8 g/dL (33.0-37.0); MEAN PLATELET VOLUME 9.3 fL (7.2-11.7); MONO # 0.9 K/uL (0.0-0.8); PLATELET COUNT 218 K/uL (130-400); RED CELL DISTRIBUTION WIDTH 13.4 % (11.5-14.5)
[2016-11-23 08:46] LABS: INR 1.1
[2016-11-23 09:00] LABS: CHLORIDE 98 mmol/L (98-107); WHITE BLOOD COUNT 9.7 K/uL (4.8-10.8)
[2016-11-23 09:01] LABS: POTASSIUM 3.6 mmol/L (3.6-5.2); SODIUM 139 mmol/L (132-148)
[2016-11-23 09:03] LABS: ALB/GLOB RATIO 1.2 (1.0-2.1); ALKALINE PHOSPHATASE 104 U/L (38-126); ALT/SGPT 196 U/L (9-52); AST/SGOT 36 U/L (14-36); BILIRUBIN,TOTAL 0.9 mg/dL (0.2-1.3); BLOOD UREA NITROGEN 3 mg/dL (7-17); CARBON DIOXIDE 28 mmol/L (22-30); GFR AFRICAN-AMERICAN > 60; GLUCOSE,RANDOM 104 mg/dL (65-105); TOTAL PROTEIN 6.5 g/dL (6.3-8.3)
[2016-11-23 09:04] LABS: MAGNESIUM 1.6 mg/dL (1.6-2.3); PHOSPHOROUS 3.3 mg/dL (2.5-4.5)
[2016-11-23 09:33] VITALS: BP 131/80; PULSE 68; O2SAT 99
--- NOTE | 2016-11-23 10:12 | CP.PCM.PN ---
Subjective - Date & Time of Evaluation Date of Evaluation: 11/23/16 Time of Evaluation: 10:09 - Subjective Subjective: General Surgery - Dr. Hatfield Pt S&E> NAEO. Pt doing well s/p robotic cholecystectomy. She is OOB and ambulating, tolerating regular diet, minimal pain from surgical incisions. She denies any F/C, SOB/CP, N/V. Objective - Vital Signs/Intake and Output Vital Signs (last 24 hours): Temp Pulse Resp BP Pulse Ox 98.2 F 68 20 131/80 99 11/23/16 09:32 11/23/16 09:32 11/23/16 09:32 11/23/16 09:32 11/23/16 09:32 - Medications Medications: Current Medications Sodium Chloride (Sodium Chloride 0.9%) 1,000 mls @ 100 mls/hr IV .Q10H [facility] Last Admin: 11/23/16 08:05 Dose: 100 mls/hr Morphine Sulfate (Morphine) 4 mg IVP Q4 PRN PRN Reason: Pain, moderate (4-7) Last Admin: 11/22/16 13:46 Dose: 4 mg Ondansetron HCl (Zofran Inj) 4 mg IVP Q4 PRN PRN Reason: Nausea/Vomiting Oxycodone/Acetaminophen (Percocet 5/325 Mg Tab) 1 tab PO Q4H PRN PRN Reason: Pain, moderate (4-7) Stop: 11/25/16 13:12 Pantoprazole Sodium (Protonix Inj) 40 mg IVP DAILY [facility] Last Admin: 11/22/16 09:24 Dose: 40 mg - Labs Labs: 11/23/16 08:30 11/23/16 08:30 PT 12.6 SECONDS (9.7-12.2) H 11/23/16 08:30 INR 1.1 11/23/16 08:30 APTT 30 SECONDS (21-34) 11/23/16 08:30 - Constitutional Appears: Well, No Acute Distress - Head Exam Head Exam: ATRAUMATIC, NORMOCEPHALIC - Eye Exam Eye Exam: EOMI, Normal appearance - Respiratory Exam Respiratory Exam: NORMAL BREATHING PATTERN. absent: Respiratory Distress - GI/Abdominal Exam GI & Abdominal Exam: Soft. absent: Distended, Guarding, Tenderness, Rebound Additional comments: dressings c/d/i - Neurological Exam Neurological Exam: Alert, Oriented x3 - Psychiatric Exam Psychiatric exam: Normal Affect, Normal Mood - Skin Skin Exam: Dry, Intact Assessment and Plan - Assessment and Plan (Free Text) Assessment: 46 yo F w/ gallstone pancreatitis, POD #1 s/p Robotic Cholecystectomy -Doing well post-operatively -Continue regular diet and light activity -Clear for discharge home from surgical standpoint -Pt may remove dressings tomorrow and leave steri-strips in place -Pt should followup with Dr. Hatfield in office in 1 week -Dw Dr Alysia Patten, PGY2
[2016-11-23 10:28] LABS: NEUTROPHIL 89 % (50-75); TOTAL CELLS COUNTED 100
--- NOTE | 2016-11-23 10:59 | CP.PCM.DIS ---
Provider - Provider Date of Admission: 11/18/16 18:29 Attending physician: Rodrigue Sainz MD Primary care physician: Formerly either Dr Prisca Garcia or Dr Matthew Abernathy, both have retired Consults: Dr Abrams ~ GI Dr Belcher ~ Surgery Time Spent in preparation of Discharge (in minutes): 29 Diagnosis - Discharge Diagnosis (1) Cholelithiasis Status: Acute Comment: 11/23: Patient has a history of cholelithiasis. There has been ongoing symptoms for sometime now. While here she had an MRCP as well as ERCP due to billiary stones and sludge. Afterwards to underwent cholesectomy. (2) Pancreatitis, acute Status: Acute Comment: 11/23: Patient had an elevated lipase and pain when she came to the hospital - this pain resolved by the time she was admitted likley she passed the obstruction stone on her own but the MRCP still showed a lot of debris and required an ERCP which successful helped lower her lipase, LFTs decreased, T shaila decreased. Hospital Course - Lab Results Lab Results: Micro Results 11/22/16 15:09 Peritoneal Fluid Gram Stain - Final 11/22/16 15:09 Peritoneal Fluid Body Fluid Culture - Preliminary NO GROWTH AFTER 24 HOURS 11/18/16 Unknown Urine,Fitzpatrick Urine Culture - Final No Growth (<1,000 CFU/ML) Most Recent Lab Values WBC 9.7 K/uL (4.8-10.8) D 11/23/16 08:30 RBC 3.97 Mil/uL (3.80-5.20) 11/23/16 08:30 Hgb 12.3 g/dL (11.0-16.0) 11/23/16 08:30 Hct 37.3 % (34.0-47.0) 11/23/16 08:30 MCV 94.1 fL (81.0-99.0) 11/23/16 08:30 MCH 30.9 pg (27.0-31.0) 11/23/16 08:30 MCHC 32.8 g/dL (33.0-37.0) L 11/23/16 08:30 RDW 13.4 % (11.5-14.5) 11/23/16 08:30 Plt Count 218 K/uL (130-400) 11/23/16 08:30 MPV 9.3 fL (7.2-11.7) 11/23/16 08:30 Neut % (Auto) 83.9 % (50.0-75.0) H 11/23/16 08:30 Lymph % (Auto) 7.0 % (20.0-40.0) L 11/23/16 08:30 Wilkinson % (Auto) 9.0 % (0.0-10.0) 11/23/16 08:30 Eos % (Auto) 0.0 % (0.0-4.0) 11/23/16 08:30 Baso % (Auto) 0.1 % (0.0-2.0) 11/23/16 08:30 Neut # 8.1 K/uL (1.8-7.0) H 11/23/16 08:30 Lymph # 0.7 K/uL (1.0-4.3) L 11/23/16 08:30 Wilkinson # 0.9 K/uL (0.0-0.8) H 11/23/16 08:30 Eos # 0.0 K/uL (0.0-0.7) 11/23/16 08:30 Baso # 0.0 K/uL (0.0-0.2) 11/23/16 08:30 Neutrophils % (Manual) 89 % (50-75) H 11/23/16 08:30 Band Neutrophils % 3 % (0-2) H 11/18/16 16:14 Lymphocytes % (Manual) 5 % (20-40) L 11/23/16 08:30 Monocytes % (Manual) 6 % (0-10) 11/23/16 08:30 Hypersegmented Polys Present 11/18/16 16:14 Smudge Cells Present 11/18/16 16:14 Platelet Estimate Normal (NORMAL) 11/23/16 08:30 Large Platelets Present 11/18/16 16:14 RBC Morphology Normal 11/23/16 08:30 Polychromasia Slight 11/18/16 16:14 Poikilocytosis (manual Slight 11/18/16 16:14 Anisocytosis (manual) Slight 11/18/16 16:14 PT 12.6 SECONDS (9.7-12.2) H 11/23/16 08:30 INR 1.1 11/23/16 08:30 APTT 30 SECONDS (21-34) 11/23/16 08:30 Sodium 139 mmol/L (132-148) 11/23/16 08:30 Potassium 3.6 mmol/L (3.6-5.2) 11/23/16 08:30 Chloride 98 mmol/L (98-107) 11/23/16 08:30 Carbon Dioxide 28 mmol/L (22-30) 11/23/16 08:30 Anion Gap 16 (10-20) 11/23/16 08:30 BUN 3 mg/dL (7-17) L 11/23/16 08:30 Creatinine 0.6 MG/DL (0.7-1.2) L 11/23/16 08:30 Est GFR ( Amer) > 60 11/23/16 08:30 Est GFR (Non-Af Amer) > 60 11/23/16 08:30 Random Glucose 104 mg/dL (65-105) 11/23/16 08:30 Hemoglobin A1c 6.1 % (4.2-6.5) 11/19/16 08:03 Calcium 8.0 mg/dl (8.6-10.4) L 11/23/16 08:30 Phosphorus 3.3 mg/dL (2.5-4.5) 11/23/16 08:30 Magnesium 1.6 mg/dL (1.6-2.3) 11/23/16 08:30 Total Bilirubin 0.9 mg/dL (0.2-1.3) 11/23/16 08:30 AST 36 U/L (14-36) 11/23/16 08:30 ALT 196 U/L (9-52) H 11/23/16 08:30 Alkaline Phosphatase 104 U/L (38-126) 11/23/16 08:30 Lactate Dehydrogenase 334 U/L (313-618) 11/20/16 07:48 Total Protein 6.5 g/dL (6.3-8.3) 11/23/16 08:30 Albumin 3.6 g/dL (3.5-5.0) 11/23/16 08:30 Globulin 2.9 gm/dL (2.2-3.9) 11/23/16 08:30 Albumin/Globulin Ratio 1.2 (1.0-2.1) 11/23/16 08:30 Triglycerides 42 mg/dL (0-149) 11/19/16 08:03 Cholesterol 137 mg/dL (0-199) 11/19/16 08:03 LDL Cholesterol Direct 45 mg/dL (0-129) 11/19/16 08:03 HDL Cholesterol 65 mg/dL (30-70) 11/19/16 08:03 Amylase 734 U/L (30-110) H 11/19/16 08:03 Lipase 200 U/L (23-300) 11/21/16 07:48 TSH 3rd Generation 1.01 mIU/L (0.46-4.68) 11/19/16 08:03 Urine Color Yellow (YELLOW) 11/18/16 16:14 Urine Clarity Clear (Clear) 11/18/16 16:14 Urine pH 5.0 (5.0-8.0) 11/18/16 16:14 Ur Specific [place] 1.008 (1.003-1.030) 11/18/16 16:14 Urine Protein Negative mg/dL (NEGATIVE) 11/18/16 16:14 Urine Glucose (UA) Normal mg/dL (Normal) 11/18/16 16:14 Urine Ketones Negative mg/dL (NEGATIVE) 11/18/16 16:14 Urine Blood 1+ (NEGATIVE) H 11/18/16 16:14 Urine Nitrate Negative (NEGATIVE) 11/18/16 16:14 Urine Bilirubin Negative (NEGATIVE) 11/18/16 16:14 Urine Urobilinogen Normal mg/dL (0.2-1.0) 11/18/16 16:14 Ur Leukocyte Esterase Neg Florentin/uL (Negative) 11/18/16 16:14 Urine RBC (Auto) 3 /hpf (0-3) 11/18/16 16:14 Ur Squamous Epith Cells 3 /hpf (0-5) 11/18/16 16:14 Urine HCG, Qual Negative (NEGATIVE) 11/18/16 16:14 Hepatitis A IgM Ab Negative (NEGATIVE) 11/19/16 09:56 Hep Bs Antigen Negative (NEGATIVE) 11/19/16 09:56 Hep B Core IgM Ab Negative (NEGATIVE) 11/19/16 09:56 Hepatitis C Antibody Negative (NEGATIVE) 11/19/16 09:56 - Hospital Course Hospital Course: This is a 46 year old female with a history of gallstones who was sent in by her PMD secondary to very bad abdominal pain she had vomiting, nausea. At the ER lab work showed she had very elevated lipase of 11,500 as well as AST and ALT that are 2,200 each and an elevated T billirubin. Imaging with U/S and CT showed she had gallstones. By the time the patient was admitted she was pain free despite these very high numbers - likely she passed the obstructing stone. She then subsequently had an MRCP and then ERCP. Following the ERCP she had a cholesectomy done. She tolerated the procedure very well, lab work stable. As of 11/23 she had minimal pain, tolerated her diet, was not vomiting, she reported flatulence as well. I spoke with the patient's new primary care physician as well Dr Oumar Tiwari. Discharge Exam - Head Exam Head Exam: ATRAUMATIC, NORMOCEPHALIC - Eye Exam Eye Exam: Normal appearance - Respiratory Exam Respiratory Exam: Clear to PA & Lateral, NORMAL BREATHING PATTERN - Cardiovascular Exam Cardiovascular Exam: REGULAR RHYTHM - GI/Abdominal Exam GI & Abdominal Exam: Normal Bowel Sounds, Soft. absent: Diminished Bowel Sounds , Distended, Firm, Guarding Additional comments: The dressing is clean, dry, intact - Neurological Exam Neurological exam: Alert, Oriented x3 - Psychiatric Exam Psychiatric exam: Normal Affect, Normal Mood - Skin Skin Exam: Normal Color, Warm Discharge Plan - Discharge Medications Prescriptions: RX: oxyCODONE/Acetaminophen [Percocet 5/325 mg Tab] 1 tab PO Q4H PRN #24 tab PRN Reason: Pain, Moderate (4-7) - Follow Up Plan Condition: STABLE Disposition: HOME/ ROUTINE Referrals: Anatoliy Hatfield MD [Staff Provider] -
== END 2016-11-23 15:30 | disposition home or self-care (01) | DRG 408 ==
LOC: C.ER 14:23 → C.9OBSV 15:00 → OBSVTOIN 18:29 → C.9E 18:29 → C.3T 19:16
PROVIDERS: ADMIT Internal Medicine; ATTEND Internal Medicine
PROC: 0W3P4ZZ Control Bleeding in Gastrointestinal Tract, Percutaneous Endoscopic Approach (ICD-10-PCS; 2016-11-20)
PROC: 0FC98ZZ Extirpation of Matter from Common Bile Duct, Via Natural or Artificial Opening Endoscopic (ICD-10-PCS; 2016-11-20)
PROC: 0F9 Hepatobiliary System and Pancreas, Drainage (ICD-10-PCS; 2016-11-22)
PROC: 8E0W4CZ Robotic Assisted Procedure of Trunk Region, Percutaneous Endoscopic Approach (ICD-10-PCS; 2016-11-22)
PROC: 0FT44ZZ Resection of Gallbladder, Percutaneous Endoscopic Approach (ICD-10-PCS; principal; 2016-11-22 11:00)
DX: K80.66 Calculus of gallbladder and bile duct with acute and chronic cholecystitis without obstruction (principal); K85.10 Biliary acute pancreatitis without necrosis or infection; E87.6 Hypokalemia; K82.8 Other specified diseases of gallbladder